=== PATIENT | male | born 1975 | race Caucasian/White ===

== ENCOUNTER 2016-04-11 09:25 | Outpatient (CLI) | payer MEDICAID | END 2016-04-11 09:26 | disposition home or self-care (01) | DX: G47.33 Obstructive sleep apnea (adult) (pediatric) (principal) ==

== ENCOUNTER 2016-04-11 11:03 | Outpatient (CLI) | END 2016-04-11 11:04 | disposition home or self-care (01) ==

== ENCOUNTER 2016-05-02 14:32 | Outpatient (CLI) | payer MEDICAID | END 2016-05-02 14:33 | disposition home or self-care (01) | DX: R74.8 Abnormal levels of other serum enzymes (principal) ==

== ENCOUNTER 2016-05-17 15:50 | Outpatient (CLI) | payer MEDICAID | END 2016-05-17 15:51 | disposition home or self-care (01) | DX: R74.8 Abnormal levels of other serum enzymes (principal) ==

== ENCOUNTER 2016-05-20 11:04 | Outpatient (CLI) | payer MEDICAID | END 2016-05-20 11:05 | disposition home or self-care (01) | DX: G47.33 Obstructive sleep apnea (adult) (pediatric) (principal) ==

== ENCOUNTER 2016-07-15 10:43 | Outpatient (CLI) | payer MEDICAID | END 2016-07-15 10:44 | disposition home or self-care (01) | DX: G47.33 Obstructive sleep apnea (adult) (pediatric) (principal) ==

== ENCOUNTER 2016-08-19 13:18 | Outpatient (CLI) | payer MEDICAID | END 2016-08-19 13:19 | disposition home or self-care (01) | DX: G47.33 Obstructive sleep apnea (adult) (pediatric) (principal) ==

== ENCOUNTER 2016-09-25 13:17 | Outpatient (CLI) | payer MEDICAID | END 2016-09-25 13:18 | disposition home or self-care (01) | LOC: SC 13:17 | PROVIDERS: ATTEND Nurse Practitioner Family | DX: G47.33 Obstructive sleep apnea (adult) (pediatric) (principal) | CPT/HCPCS: 99212; 99214 ==

== ENCOUNTER 2016-12-30 08:57 | Outpatient (CLI) | payer MEDICAID | END 2016-12-30 08:58 | disposition home or self-care (01) | LOC: SC 08:57 | PROVIDERS: ATTEND Nurse Practitioner Family | DX: G47.33 Obstructive sleep apnea (adult) (pediatric) (principal) | CPT/HCPCS: 99212; 99214 ==

== ENCOUNTER 2017-01-21 14:40 | Outpatient (CLI) | payer MEDICAID | END 2017-01-21 14:41 | disposition home or self-care (01) | LOC: LAB.WCP 14:40 | PROVIDERS: ATTEND Physician Assistant Medical | DX: Z11.3 Encounter for screening for infections with a predominantly sexual mode of transmission (principal) | CPT/HCPCS: 36415; 86803 ==

== ENCOUNTER 2017-06-03 08:00 | Outpatient (CLI) | payer MEDICAID ==
[2017-06-03 13:40] LABS: BASOPHILS % (AUTO) 0.4 %; EOSINOPHILS # (AUTO) 0.2 10^3/uL (0.0-0.7); EOSINOPHILS % (AUTO) 3.3 %; HGB - HEMOGLOBIN 14.5 g/dL (14.0-18.0); LYMPHOCYTES # (AUTO) 1.3 10^3/uL (1.5-3.5); LYMPHOCYTES % (AUTO) 18.2 %; MEAN CORPUSCULAR HGB CONC 35.1 g/dL (32.0-36.0); MEAN CORPUSCULAR VOLUME 85.5 fL (80.0-94.0); MEAN PLATELET VOLUME 9.5 fL (7.4-11.4); MONOCYTES # (AUTO) 0.5 10^3/uL (0.0-1.0); MONOCYTES % (AUTO) 6.4 %; NEUTROPHILS # (AUTO) 5.2 10^3/uL (1.5-6.6); NEUTROPHILS % (AUTO) 71.7 %; PLT - PLATELET COUNT 150 10^3/uL (130-450); RED BLOOD COUNT 4.82 10^6/uL (4.70-6.10); RED CELL DISTRIBUTION WIDTH 13.7 % (12.0-15.0); WHITE BLOOD COUNT 7.2 x10^3/uL (4.8-10.8)
[2017-06-03 13:58] LABS: ALBUMIN 4.4 g/dL (3.2-5.5); ALBUMIN/GLOBULIN RATIO 1.4 (1.0-2.2); ALKALINE PHOSPHATASE 72 IU/L (42-121); ALT ALANINE AMINOTRANSFERASE 32 IU/L (10-60); AST ASPARTATE AMINOTRANSFERASE 29 IU/L (10-42); BILIRUBIN,TOTAL 0.9 mg/dL (0.2-1.0); BUN - BLOOD UREA NITROGEN 14 mg/dL (6-20); CALCIUM 9.2 mg/dL (8.5-10.3); CARBON DIOXIDE - CO2 26 mmol/L (21-32); CHLORIDE 101 mmol/L (101-111); CHOL/HDL RATIO 3.7 (<5.0); CHOLESTEROL 161 mg/dL; CREATININE 0.8 mg/dL (0.6-1.2); GFR - MDRD 106 (>89); GLUCOSE 88 mg/dL (70-100); HDL CHOLESTEROL 43 mg/dL; LDL CHOLESTEROL,CALCULATED 97 mg/dL; LDL/HDL RATIO 2.3 (<3.6); SODIUM 136 mmol/L (135-145); TOTAL PROTEIN 7.6 g/dL (6.7-8.2); VLDL CHOLESTEROL 21 mg/dL
[2017-06-04 13:07] LABS: HEPATITIS C ANTIBODY NON-REACTIVE (NON-REACTIVE)
[2017-06-04 14:48] LABS: HIV AG/AB 4TH GEN NON-REACTIVE (NON-REACTIVE)
== END 2017-06-03 08:01 | disposition home or self-care (01) ==
LOC: LAB.WCP 08:00
PROVIDERS: ATTEND Physician Assistant Medical
DX: Z00.00 Encounter for general adult medical examination without abnormal findings (principal); Z11.4 Encounter for screening for human immunodeficiency virus [HIV]
CPT/HCPCS: 36415; 80053; 80061; 81599; 83721; 84443; 85025; 86592; 86803; 87389; 87491; 87591

== ENCOUNTER 2017-09-20 10:16 | Emergency (ER) | payer OTHER, MEDICAID ==
[2017-09-20 10:29] VITALS: BP 129/90
[2017-09-20] MEDS ORDERED: PROPARACAINE 0.5% OPHTH DROPS 15 ML LEFTEYE STA (11:18)
--- NOTE | 2017-09-20 11:25 | ED Physician Documentation ---
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 and one swung away and back and the poot peg hit him in the L eye he saw a flash of white and now his eye hurts and the vision if blurry and the light irritates the eye so he has to squint Review of Systems Eyes: reports: Decreased vision, Irritation PD PAST MEDICAL HISTORY - Present Medications Home Medications: Ambulatory Orders Medication Instructions Recorded Confirmed Erythromycin Base [Erythromycin] 1 applic OP Q4H #1 tub 09/20/17 - Allergies Allergies/Adverse Reactions: Allergies Allergy/AdvReac Type Severity Reaction Status Date / Time Sulfa (Sulfonamide Allergy Unknown Verified 09/20/17 10:26 Antibiotics) PD ED PE NORMAL - Vitals Vital signs reviewed: Yes - HEENT HEENT: PERRL, EOMI, Other (photophobia. improved with proparacaine, no retinal tear vis, no retinal hemorrhage vis, mobile linear abrasion L of iris c/w sup scleral tear, no leaking) - Neck Neck: Supple, no meningeal sign - Respiratory Respiratory: No respiratory distress Results - Vitals Vitals: Vital Signs - 24 hr 09/20/17 10:26 Temperature 37.3 C Heart Rate 72 Respiratory 18 Rate Blood Pressure 129/90 H O2 Saturation 97 Oxygen O2 Source Room air PD MEDICAL DECISION MAKING - Sepsis Event Vital Signs: Vital Signs - 24 hr 09/20/17 10:26 Temperature 37.3 C Heart Rate 72 Respiratory 18 Rate Blood Pressure 129/90 H O2 Saturation 97 Oxygen O2 Source Room air Departure - Departure Disposition: 01 Home, Self Care Clinical Impression: Eye injury, superficial Qualifiers: Encounter type: initial encounter Laterality: left Qualified Code(s): S05.8X2A - Other injuries of left eye and orbit, initial encounter Condition: Good Instructions: ED Eye Injury Corneal Abrasion Follow-Up: Christopher Blanco MD [Provider Admit Priv/Credential] - (call Friday morning for an ER follow up appointment) Prescriptions: Erythromycin Base [Erythromycin] 1 applic OP Q4H #1 tub Comments: The dilating drops will last about 24 hours and provide relief from the squinting and pain with light. You should wear sunglasses and not drive for at least 24 hr You can also take motrin for the pain Cool compresses will help too Use the eye ointment every 4 hr while awake Follow up with the eye doctor for a recheck Friday or Friday - including a more thorough evaluation of your retina Forms: Activity restrictions
[2017-09-20] MEDS ORDERED: CYCLOPENTOLATE 1% OPHTH DROPS 2 ML LEFTEYE ONE (11:59)
== END 2017-09-20 12:16 | disposition home or self-care (01) ==
LOC: ED 10:16
DX: S05.92XA Unspecified injury of left eye and orbit, initial encounter (principal); W22.8XXA Striking against or struck by other objects, initial encounter; Y92.89 Other specified places as the place of occurrence of the external cause; Y99.0 Civilian activity done for income or pay
CPT/HCPCS: 99283; A9270; J3490

== ENCOUNTER 2017-10-20 10:46 | Emergency (ER) | payer MEDICAID ==
--- NOTE | 2017-10-20 12:29 | ED Physician Documentation ---
PD HPI OPHTHO - Stated complaint Stated Complaint: LT EYE PX - Chief complaint Chief Complaint: Heent - History obtained from History obtained from: Patient - History of Present Illness Timing - onset: How many weeks ago (1) Timing - duration: Weeks (1) Timing - details: Gradual onset, Still present Location: Left Quality / character: Aching, Other (feeling of pressure behind left eye and some pain with eye movement.) Associated symptoms: No: Redness, Swelling, Discharge, Photophobia, Double vision Contributing factors: No: Exposed to conjunctivitis, Recent URI, Blunt trauma, Wears contacts Similar symptoms before: Has not had sx before Recently seen: Not recently seen Review of Systems Constitutional: denies: Fever, Chills Eyes: denies: Loss of vision, Decreased vision, Photophobia, Discharge Ears: denies: Ear pain Nose: reports: Sinus pressure / pain (some congestion). 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 ) - Present Medications Home Medications: Ambulatory Orders Medication Instructions Recorded Confirmed Erythromycin Base [Erythromycin] 1 applic OP Q4H #1 tub 09/20/17 Cephalexin [Keflex] 500 mg PO TID #21 capsule 10/20/17 Cetirizine [ZyrTEC] 10 mg PO DAILY #20 tablet 10/20/17 Dexamethasone [Decadron] 4 mg PO DAILY #5 tablet 10/20/17 HYDROcod/ACETAM 5/325 [[place] 5/325] 1 tab PO Q6H PRN #15 tablet 10/20/17 - Allergies Allergies/Adverse Reactions: Allergies Allergy/AdvReac Type Severity Reaction Status Date / Time Sulfa (Sulfonamide Allergy Unknown Verified 09/20/17 10:26 Antibiotics) - Social History Does the pt smoke?: No Smoking Status: Never smoker Does the pt drink ETOH?: No Does the pt have substance abuse?: No - Immunizations Immunizations are current?: Yes - POLST Patient has POLST: No PD ED PE NORMAL - Vitals Vital signs reviewed: Yes - General General: Alert and oriented X 3, No acute distress, Well developed/nourished - HEENT HEENT: PERRL, EOMI, Moist mucous membranes, Pharynx benign, Dentition benign, Other (some injection/ hyperemia of left eye. No proptosis. Eye ballottement feels normal. Fundal exam is normal. IOP by [facility] is 15. No photophobia. ) - Neck Neck: Supple, no meningeal sign, No adenopathy Results - Vitals Vitals: Vital Signs - 24 hr 10/20/17 10/20/17 11:09 14:58 Temperature 36.8 C Heart Rate 78 86 Respiratory 17 18 Rate Blood Pressure 126/86 H 140/89 H O2 Saturation 95 98 Oxygen O2 Source Room air - Labs Labs: Laboratory Tests 10/20/17 10/20/17 13:08 13:08 WBC 7.3 RBC 5.05 Hgb 15.1 Hct 43.9 MCV 86.9 MCH 30.0 MCHC 34.5 RDW 13.8 Plt Count 163 MPV 8.8 Neut # (Auto) 4.7 Lymph # (Auto) 1.6 [place] # (Auto) 0.6 Eos # (Auto) 0.4 Baso # (Auto) 0.0 Absolute Nucleated RBC 0.00 Nucleated RBC % 0.0 ESR 4 - Rads (name of study) orbital CT Radiology: Prelim report reviewed (orbit normal. left maxillary inflammation.) PD MEDICAL DECISION MAKING - ED course Complexity details: considered differential (IOP is good. has feeling of pressure behind left eye. Got CT to evaluate for process such as tumor, hematoma , infection, etc. The orbit appears okay. There is some sinusitis left maxillary. ), d/w patient - Sepsis Event Vital Signs: Vital Signs - 24 hr 10/20/17 10/20/17 11:09 14:58 Temperature 36.8 C Heart Rate 78 86 Respiratory 17 18 Rate Blood Pressure 126/86 H 140/89 H O2 Saturation 95 98 Oxygen O2 Source Room air Departure - Departure Disposition: 01 Home, Self Care Clinical Impression: Retro-orbital pain of left eye Sinusitis Qualifiers: Sinusitis location: maxillary Chronicity: acute Recurrence: non-recurrent Qualified Code(s): J01.00 - Acute maxillary sinusitis, unspecified Condition: Stable Record reviewed to determine appropriate education?: Yes Instructions: ED Sinusitis Abx Tx Follow-Up: Karissa Calderón DO [Primary Care Provider] - Prescriptions: Cephalexin [Keflex] 500 mg PO TID #21 capsule Cetirizine [ZyrTEC] 10 mg PO DAILY #20 tablet Dexamethasone [Decadron] 4 mg PO DAILY #5 tablet HYDROcod/ACETAM 5/325 [[place] 5/325] 1 tab PO Q6H PRN #15 tablet PRN Reason: Pain Comments: The orbits area and the tissue around it appear normal to me. The radiology report is still pending. There is some inflammation and fluid in the left maxillary sinus so this may be putting enough pressure to feel that it is irritating the orbits. Will treat with anti-inflammatories Decadron daily for 5 days. He can use naproxen or ibuprofen as well. Use antibiotic cephalexin 3 times a day for a week. Also use cetirizine antihistamine to decrease some of the pressure and congestion. Add hydrocodone if needed for pain in the short- term. Follow-up with your primary care if not improved over the next several days. Discharge Date/Time: 10/20/17 15:00
[2017-10-20 13:14] LABS: BASOPHILS % (AUTO) 0.4 %; EOSINOPHILS # (AUTO) 0.4 10^3/uL (0.0-0.7); HGB - HEMOGLOBIN 15.1 g/dL (14.0-18.0); LYMPHOCYTES # (AUTO) 1.6 10^3/uL (1.5-3.5); LYMPHOCYTES % (AUTO) 22.2 %; MEAN CORPUSCULAR HGB CONC 34.5 g/dL (32.0-36.0); MEAN CORPUSCULAR VOLUME 86.9 fL (80.0-94.0); MEAN PLATELET VOLUME 8.8 fL (7.4-11.4); MONOCYTES # (AUTO) 0.6 10^3/uL (0.0-1.0); MONOCYTES % (AUTO) 7.9 %; NEUTROPHILS # (AUTO) 4.7 10^3/uL (1.5-6.6); NEUTROPHILS % (AUTO) 64.5 %; PLT - PLATELET COUNT 163 10^3/uL (130-450); RED BLOOD COUNT 5.05 10^6/uL (4.70-6.10); RED CELL DISTRIBUTION WIDTH 13.8 % (12.0-15.0); WHITE BLOOD COUNT 7.3 x10^3/uL (4.8-10.8)
--- NOTE | 2017-10-20 14:37 | CT Report ---
Procedure Date: 10/20/2017 Accession Number: [id number] / [id number] Procedure: CT - Orbits W/O CPT Code: FULL RESULT: EXAM: CT MAXILLOFACIAL WITHOUT CONTRAST EXAM DATE: 10/20/2017 02:05 PM. CLINICAL HISTORY: Left retro-bulbar pressure feeling for 1-2 weeks. COMPARISONS: None. TECHNIQUE: Thin-section axial images were acquired of the face without contrast. Post-processing: Coronal and sagittal reformats. Other: None. In accordance with CT protocol optimization, one or more of the following dose reduction techniques were utilized for this exam: automated exposure control, adjustment of mA and/or KV based on patient size, or use of iterative reconstructive technique. FINDINGS: Soft Tissue: The infratemporal fossa and parapharyngeal spaces are unremarkable. Orbits: Symmetric and unremarkable. Bones: No fracture or bone lesion. Temporomandibular Joints: The temporomandibular joints are symmetric and normally located. Sinuses: There is mild mucosal thickening within the inferior aspect of the maxillary sinuses bilaterally. The infundibulum and ostiomeatal complex appears patent. The other paranasal sinuses are clear. Other: None. IMPRESSION: Negative orbital CT. RADIA
[2017-10-20] MEDS ORDERED: KETOROLAC 30 MG/ML VIAL IM STA (14:38)
[2017-10-20] MEDS ORDERED: cephALEXin 250 MG CAPSULE PO STA (14:38)
[2017-10-20 14:59] VITALS: BP 140/89
== END 2017-10-20 15:00 | disposition home or self-care (01) ==
LOC: ED 10:46
DX: H57.12 Ocular pain, left eye (principal); J01.00 Acute maxillary sinusitis, unspecified
CPT/HCPCS: 36415; 70480; 85025; 85651; 96372; 99283; A9270

== ENCOUNTER 2018-03-09 11:56 | Outpatient (CLI) | payer MEDICAID | END 2018-03-09 23:59 | disposition home or self-care (01) | LOC: LAB.WCP 11:56 | PROVIDERS: ATTEND Nurse Practitioner | DX: K29.70 Gastritis, unspecified, without bleeding (principal) | CPT/HCPCS: 87493 ==

== ENCOUNTER 2018-06-11 14:25 | Outpatient (CLI) | payer MEDICAID ==
[2018-06-11 19:06] LABS: BASOPHILS % (AUTO) 0.4 %; EOSINOPHILS # (AUTO) 0.3 10^3/uL (0.0-0.7); EOSINOPHILS % (AUTO) 3.9 %; HGB - HEMOGLOBIN 14.1 g/dL (14.0-18.0); LYMPHOCYTES # (AUTO) 2.5 10^3/uL (1.5-3.5); LYMPHOCYTES % (AUTO) 30.1 %; MEAN CORPUSCULAR HEMOGLOBIN 28.5 pg (27.0-31.0); MEAN CORPUSCULAR HGB CONC 33.2 g/dL (32.0-36.0); MEAN CORPUSCULAR VOLUME 85.8 fL (80.0-94.0); MEAN PLATELET VOLUME 9.9 fL (7.4-11.4); MONOCYTES # (AUTO) 0.6 10^3/uL (0.0-1.0); MONOCYTES % (AUTO) 6.9 %; NEUTROPHILS # (AUTO) 4.9 10^3/uL (1.5-6.6); NEUTROPHILS % (AUTO) 58.7 %; PLT - PLATELET COUNT 171 10^3/uL (130-450); RED BLOOD COUNT 4.94 10^6/uL (4.70-6.10); RED CELL DISTRIBUTION WIDTH 13.9 % (12.0-15.0); WHITE BLOOD COUNT 8.3 x10^3/uL (4.8-10.8)
[2018-06-11 19:09] LABS: ALBUMIN 4.3 g/dL (3.2-5.5); ALBUMIN/GLOBULIN RATIO 1.4 (1.0-2.2); BILIRUBIN,TOTAL 1.2 mg/dL (0.2-1.0); CALCIUM 9.1 mg/dL (8.5-10.3); CREATININE 0.8 mg/dL (0.6-1.2); TOTAL PROTEIN 7.4 g/dL (6.7-8.2)
== END 2018-06-11 23:59 | disposition home or self-care (01) ==
LOC: LAB.WCP 14:25
PROVIDERS: ATTEND Nurse Practitioner
DX: R31.9 Hematuria, unspecified (principal); C67.9 Malignant neoplasm of bladder, unspecified
CPT/HCPCS: 36415; 80053; 85025

== ENCOUNTER 2019-02-05 16:27 | Outpatient (CLI) | payer MEDICAID ==
[2019-02-05 16:44] LABS: BASOPHILS % (AUTO) 0.5 %; EOSINOPHILS # (AUTO) 0.3 10^3/uL (0.0-0.7); EOSINOPHILS % (AUTO) 5.2 %; HGB - HEMOGLOBIN 13.4 g/dL (14.0-18.0); LYMPHOCYTES # (AUTO) 1.4 10^3/uL (1.5-3.5); LYMPHOCYTES % (AUTO) 22.8 %; MEAN CORPUSCULAR HEMOGLOBIN 29.1 pg (27.0-31.0); MEAN CORPUSCULAR HGB CONC 33.7 g/dL (32.0-36.0); MEAN CORPUSCULAR VOLUME 86.5 fL (80.0-94.0); MEAN PLATELET VOLUME 10.7 fL (7.4-11.4); MONOCYTES # (AUTO) 0.6 10^3/uL (0.0-1.0); MONOCYTES % (AUTO) 9.6 %; NEUTROPHILS # (AUTO) 3.6 10^3/uL (1.5-6.6); NEUTROPHILS % (AUTO) 61.2 %; PLT - PLATELET COUNT 150 10^3/uL (130-450); RED CELL DISTRIBUTION WIDTH 13.2 % (12.0-15.0); WHITE BLOOD COUNT 5.9 x10^3/uL (4.8-10.8)
[2019-02-05 16:54] LABS: ALBUMIN/GLOBULIN RATIO 1.2 (1.0-2.2); BILIRUBIN,TOTAL 0.7 mg/dL (0.2-1.0); CALCIUM 9.4 mg/dL (8.5-10.3); TOTAL PROTEIN 7.3 g/dL (6.7-8.2)
== END 2019-02-05 16:28 | disposition home or self-care (01) ==
LOC: LAB 16:27
PROVIDERS: ATTEND Nurse Practitioner
DX: K76.0 Fatty (change of) liver, not elsewhere classified (principal); R68.84 Jaw pain; C67.9 Malignant neoplasm of bladder, unspecified
CPT/HCPCS: 36415; 80053; 85025

== ENCOUNTER 2019-02-18 15:31 | Outpatient (CLI) | payer MEDICAID ==
[2019-02-18] MEDS ORDERED: IOVERSOL 320 100 ML VIAL IVP ONE ×2 (15:36→16:06)
--- NOTE | 2019-02-19 08:50 | CT Report ---
Reason: HEMATURIA, OVERACTIVE BLADDER Procedure Date: 02/18/2019 Accession Number: [id number] / [id number] Procedure: CT - ABDOMEN/PELVIS W/WO CPT Code: Final Report FULL RESULT: EXAM: CT ABDOMEN AND PELVIS WITHOUT AND WITH CONTRAST (CT IVP) EXAM DATE: 02/18/2019 04:07 PM. CLINICAL HISTORY: HEMATURIA, OVERACTIVE BLADDER. COMPARISONS: None. TECHNIQUE: Routine helical imaging was performed through the kidneys, ureters and bladder in the precontrast and postcontrast phases. IV Contrast: 100 mL Optiray 320. Reconstructions: Coronal and sagittal. In accordance with CT protocol optimization, one or more of the following dose reduction techniques were utilized for this exam: automated exposure control, adjustment of mA and/or KV based on patient size, or use of iterative reconstructive technique. FINDINGS: Lung Bases: Clear. The visible heart is normal in size. There is no pericardial effusion. Liver: The liver parenchyma is hypoattenuating consistent with hepatic steatosis. No focal intrahepatic mass is seen. Gallbladder/Bile Ducts: Normal. No biliary dilatation. Spleen: Normal. Pancreas: Normal. Adrenal Glands: Normal. Kidneys/Bladder: Right Kidney/Ureter: No renal or ureteral stones. No hydronephrosis or hydroureter. A 1 cm hypoattenuating lesion is seen in the lower pole of the right kidney (series 9, image 46). This is too small to characterize, but statistically likely to represent a small cyst. No masses. Left Kidney/Ureter: No renal or ureteral stones. No hydronephrosis or hydroureter. No masses. Bladder: No stones. No wall thickening or mass. Peritoneal Cavity/Bowel: The intestines are normal in caliber and position. The appendix is normal. There is no evidence of bowel obstruction. No free fluid, free air or adenopathy. No masses or acute inflammatory process. Pelvic Organs: Within normal limits. Vasculature: No aneurysms or other significant abnormality. Bones: Mild degenerative changes in the thoracic spine. Bone islands are seen at L4 and in the proximal left femur. No acute fracture or dislocation. Other: None. IMPRESSION: 1. No urinary tract masses, stones or obstruction. 2. Hepatic steatosis. RADIA
== END 2019-02-18 15:32 | disposition home or self-care (01) ==
LOC: DI 15:31
PROVIDERS: ATTEND Nurse Practitioner
DX: R31.9 Hematuria, unspecified (principal); N32.81 Overactive bladder; K76.0 Fatty (change of) liver, not elsewhere classified
CPT/HCPCS: 74178; Q9967

== ENCOUNTER 2019-03-19 12:11 | Outpatient (CLI) | payer MEDICAID ==
[2019-03-19 12:58] LABS: ALBUMIN 4.2 g/dL (3.2-5.5); ALBUMIN/GLOBULIN RATIO 1.3 (1.0-2.2); BILIRUBIN,TOTAL 0.7 mg/dL (0.2-1.0); CALCIUM 9.1 mg/dL (8.5-10.3); CREATININE 0.7 mg/dL (0.6-1.2); TOTAL PROTEIN 7.5 g/dL (6.7-8.2)
[2019-03-19 13:06] LABS: HB2 TOTAL 14.5 g/dL; HEMOGLOBIN A1C 0.84 g/dL; HEMOGLOBIN A1C % 7.5 % (4.6-6.2)
== END 2019-03-19 12:12 | disposition home or self-care (01) ==
LOC: LAB 12:11
PROVIDERS: ATTEND Nurse Practitioner
DX: K76.0 Fatty (change of) liver, not elsewhere classified (principal); R73.9 Hyperglycemia, unspecified
CPT/HCPCS: 36415; 80053; 83036

== ENCOUNTER 2019-05-14 13:12 | Outpatient (CLI) | payer MEDICAID ==
[2019-05-14 13:35] LABS: ALBUMIN 4.3 g/dL (3.2-5.5); ALBUMIN/GLOBULIN RATIO 1.4 (1.0-2.2); CALCIUM 9.1 mg/dL (8.5-10.3); CREATININE 0.9 mg/dL (0.6-1.2); TOTAL PROTEIN 7.4 g/dL (6.7-8.2)
[2019-05-14 14:11] LABS: HB2 TOTAL 14.4 g/dL; HEMOGLOBIN A1C 0.67 g/dL; HEMOGLOBIN A1C % 6.4 % (4.6-6.2)
== END 2019-05-14 13:13 | disposition home or self-care (01) ==
LOC: LAB 13:12
PROVIDERS: ATTEND Nurse Practitioner
DX: K76.0 Fatty (change of) liver, not elsewhere classified (principal); R73.9 Hyperglycemia, unspecified
CPT/HCPCS: 36415; 80053; 83036

== ENCOUNTER 2019-09-28 14:25 | Outpatient (CLI) | payer MEDICAID ==
[2019-09-28 18:32] LABS: BASOPHILS % (AUTO) 0.5 %; EOSINOPHILS # (AUTO) 0.2 10^3/uL (0.0-0.7); EOSINOPHILS % (AUTO) 2.3 %; HGB - HEMOGLOBIN 14.7 g/dL (14.0-18.0); LYMPHOCYTES # (AUTO) 1.4 10^3/uL (1.5-3.5); LYMPHOCYTES % (AUTO) 15.9 %; MEAN CORPUSCULAR HEMOGLOBIN 28.5 pg (27.0-31.0); MEAN CORPUSCULAR HGB CONC 32.6 g/dL (32.0-36.0); MEAN CORPUSCULAR VOLUME 87.4 fL (80.0-94.0); MEAN PLATELET VOLUME 12.3 fL (7.4-11.4); MONOCYTES # (AUTO) 0.4 10^3/uL (0.0-1.0); MONOCYTES % (AUTO) 4.7 %; NEUTROPHILS # (AUTO) 6.6 10^3/uL (1.5-6.6); NEUTROPHILS % (AUTO) 76.3 %; PLT - PLATELET COUNT 171 10^3/uL (130-450); RED BLOOD COUNT 5.16 10^6/uL (4.70-6.10); RED CELL DISTRIBUTION WIDTH 13.8 % (12.0-15.0); WHITE BLOOD COUNT 8.7 x10^3/uL (4.8-10.8)
[2019-09-28 18:54] LABS: ALBUMIN 4.1 g/dL (3.2-5.5); ALBUMIN/GLOBULIN RATIO 1.4 (1.0-2.2); BILIRUBIN,TOTAL 0.7 mg/dL (0.2-1.0); CALCIUM 9.4 mg/dL (8.5-10.3); CREATININE 0.8 mg/dL (0.6-1.2); HB2 TOTAL 15.4 g/dL; HEMOGLOBIN A1C 0.54 g/dL; HEMOGLOBIN A1C % 5.4 % (4.6-6.2); TOTAL PROTEIN 7.1 g/dL (6.7-8.2)
== END 2019-09-28 23:59 | disposition home or self-care (01) ==
LOC: LAB.WCP 14:25
PROVIDERS: ATTEND Nurse Practitioner
DX: R63.4 Abnormal weight loss (principal); E11.9 Type 2 diabetes mellitus without complications; R68.84 Jaw pain; K76.0 Fatty (change of) liver, not elsewhere classified; C67.9 Malignant neoplasm of bladder, unspecified
CPT/HCPCS: 36415; 80053; 82043; 83036; 84443; 85025

== ENCOUNTER 2019-10-26 14:11 | Outpatient (CLI) | payer MEDICAID ==
--- NOTE | 2019-10-26 14:57 | XRAY Report ---
PROCEDURE: Chest 2 View X-Ray INDICATIONS: SCREENING FOR INFECTIOUS DISEASE, MEDICATION USE TECHNIQUE: 2 view(s) of the chest. COMPARISON: None. FINDINGS: Surgical changes and devices: None. Lungs and pleura: No pleural effusions or pneumothorax. Lungs are clear. Mediastinum: Mediastinal contours are normal. Heart size is normal. Bones and chest wall: No suspicious bony abnormalities. Soft tissues appear unremarkable. IMPRESSION: No acute cardiopulmonary process demonstrated radiographically. Reviewed by: Anrdés Jacobs MD on 10/26/2019 2:56 PM PDT Approved by: Andrés Jacobs MD on 10/26/2019 2:56 PM PDT Station ID: [id number]
== END 2019-10-26 14:12 | disposition home or self-care (01) ==
LOC: DI 14:11
PROVIDERS: ATTEND Nurse Practitioner
DX: Z11.9 Encounter for screening for infectious and parasitic diseases, unspecified (principal); Z79.899 Other long term (current) drug therapy; R63.4 Abnormal weight loss
CPT/HCPCS: 71046

== ENCOUNTER 2019-12-23 14:52 | Outpatient (CLI) | payer MEDICAID ==
[2019-12-23 15:05] LABS: BASOPHILS % (AUTO) 0.5 %; BILIRUBIN,URINE NEGATIVE (NEGATIVE); EOSINOPHILS # (AUTO) 0.3 10^3/uL (0.0-0.7); EOSINOPHILS % (AUTO) 4.2 %; GLUCOSE, URINE (UA) NEGATIVE (NEGATIVE); HGB - HEMOGLOBIN 15.4 g/dL (14.0-18.0); KETONES,URINE (UA) NEGATIVE (NEGATIVE); LEUKOCYTE ESTERASE, URINE NEGATIVE (NEGATIVE); LYMPHOCYTES # (AUTO) 1.6 10^3/uL (1.5-3.5); LYMPHOCYTES % (AUTO) 20.3 %; MEAN CORPUSCULAR HEMOGLOBIN 30.1 pg (27.0-31.0); MEAN CORPUSCULAR HGB CONC 34.3 g/dL (32.0-36.0); MEAN CORPUSCULAR VOLUME 87.7 fL (80.0-94.0); MEAN PLATELET VOLUME 11.2 fL (7.4-11.4); MONOCYTES # (AUTO) 0.6 10^3/uL (0.0-1.0); MONOCYTES % (AUTO) 7.2 %; NEUTROPHILS # (AUTO) 5.4 10^3/uL (1.5-6.6); NEUTROPHILS % (AUTO) 67.4 %; NITRITE,URINE NEGATIVE (NEGATIVE); OCCULT BLOOD,URINE NEGATIVE (NEGATIVE); PH,URINE 5.5 PH (5.0-7.5); PLT - PLATELET COUNT 169 10^3/uL (130-450); PROTEIN,URINE NEGATIVE (NEGATIVE); RED BLOOD COUNT 5.12 10^6/uL (4.70-6.10); RED CELL DISTRIBUTION WIDTH 13.2 % (12.0-15.0); UROBILINOGEN,URINE 0.2 (NORMAL) E.U./dL (NORMAL)
[2019-12-23] MEDS ORDERED: IOVERSOL 320 50 ML VIAL ONE (15:13)
[2019-12-23] MEDS ORDERED: IOVERSOL 320 100 ML VIAL IVP ONE (15:13)
[2019-12-23 15:17] LABS: ALBUMIN 4.4 g/dL (3.2-5.5); ALBUMIN/GLOBULIN RATIO 1.4 (1.0-2.2); BILIRUBIN,TOTAL 1.1 mg/dL (0.2-1.0); CALCIUM 9.5 mg/dL (8.5-10.3); CREATININE 0.7 mg/dL (0.6-1.2); TOTAL PROTEIN 7.6 g/dL (6.7-8.2)
[2019-12-23 15:30] LABS: BACTERIA,URINE None Seen /HPF (None Seen); CLARITY,URINE CLEAR (CLEAR); RBC,URINE None Seen /HPF (0-5); SQUAMOUS EPITHELIAL CELL,UR FEW Squamous (<= Few)
--- NOTE | 2019-12-23 19:59 | CT Report ---
PROCEDURE: Abdomen/Pelvis W INDICATIONS: ABD PAIN CONTRAST: IV CONTRAST: Optiray 320 ml: 100 PO CONTRAST: Optiray 320 ml50 TECHNIQUE: After the administration of nonionic contrast, 5 mm thick sections acquired from the diaphragms to th e symphysis. 5 mm thick coronal and sagittal reformats were acquired. For radiation dose reduction, the following was used: automated exposure control, adjustment of mA and/or kV according to patient size. COMPARISON: 02/18/2019 abdomen/pelvis CT. FINDINGS: Image quality: Excellent. ABDOMEN: Lung bases: Lung bases are clear. Heart size is normal. Solid organs: Liver and spleen are normal in size and enhancement. Gallbladder appears normal Bili nelly system is non dilated. Pancreas enhances normally. No adrenal nodules. Kidneys demonstrate nor mal size and enhancement, without hydronephrosis. Peritoneum and bowel: Bowel loops demonstrate normal wall thickness and caliber. No free fluid or a ir. Nodes and vessels: No retroperitoneal or mesenteric adenopathy by size criteria. Aorta and inferior vena cava are normal in size. Miscellaneous: No ventral hernias. PELVIS: Genitourinary: Bladder wall thickness is normal. Miscellaneous: No inguinal hernias or adenopathy. A normal appendix is found right lower quadrant. Bones: No suspicious bony lesions. No vertebral body compression fractures. IMPRESSION: Source of abdominal pain is not identified. Normal appendix found right lower quadrant. No sign of peritoneal inflammation, or diverticulitis. Mild to moderate diverticulosis is identified along the sigmoid colon. Reviewed by: Vince Washington MD on 12/23/2019 7:57 PM PDT Approved by: Vince Washington MD on 12/23/2019 7:57 PM PDT Station ID: [id number]
== END 2019-12-23 14:53 | disposition home or self-care (01) ==
LOC: DI 14:52
PROVIDERS: ATTEND Family Medicine
DX: R10.9 Unspecified abdominal pain (principal); K57.30 Diverticulosis of large intestine without perforation or abscess without bleeding
CPT/HCPCS: 36415; 74177; 80053; 81001; 82150; 83690; 85025; Q9967; 87086

== ENCOUNTER 2019-12-29 08:00 | Outpatient (CLI) | payer MEDICAID | END 2019-12-29 23:59 | disposition home or self-care (01) | LOC: LAB.R 08:00 | PROVIDERS: ATTEND Nurse Practitioner | DX: R10.9 Unspecified abdominal pain (principal) | CPT/HCPCS: 87491; 87591; 87661 ==

== ENCOUNTER 2019-12-29 08:00 | Outpatient (CLI) | payer MEDICAID ==
[2019-12-29 18:37] LABS: BASOPHILS % (AUTO) 0.3 %; EOSINOPHILS # (AUTO) 0.4 10^3/uL (0.0-0.7); EOSINOPHILS % (AUTO) 4.4 %; HGB - HEMOGLOBIN 15.4 g/dL (14.0-18.0); LYMPHOCYTES # (AUTO) 1.9 10^3/uL (1.5-3.5); LYMPHOCYTES % (AUTO) 21.8 %; MEAN CORPUSCULAR HEMOGLOBIN 29.5 pg (27.0-31.0); MEAN CORPUSCULAR HGB CONC 33.6 g/dL (32.0-36.0); MEAN CORPUSCULAR VOLUME 87.9 fL (80.0-94.0); MEAN PLATELET VOLUME 11.6 fL (7.4-11.4); MONOCYTES # (AUTO) 0.6 10^3/uL (0.0-1.0); MONOCYTES % (AUTO) 7.2 %; NEUTROPHILS # (AUTO) 5.9 10^3/uL (1.5-6.6); NEUTROPHILS % (AUTO) 65.9 %; PLT - PLATELET COUNT 188 10^3/uL (130-450); RED BLOOD COUNT 5.22 10^6/uL (4.70-6.10); RED CELL DISTRIBUTION WIDTH 13.4 % (12.0-15.0); WHITE BLOOD COUNT 8.9 x10^3/uL (4.8-10.8)
[2019-12-29 18:38] LABS: ALBUMIN 4.4 g/dL (3.2-5.5); ALBUMIN/GLOBULIN RATIO 1.4 (1.0-2.2); BILIRUBIN,TOTAL 0.8 mg/dL (0.2-1.0); CALCIUM 9.7 mg/dL (8.5-10.3); CREATININE 0.8 mg/dL (0.6-1.2); TOTAL PROTEIN 7.5 g/dL (6.7-8.2)
[2019-12-31 13:36] LABS: HSV 1 IGG TYPE SPECIFIC AB 8.08 index; HSV 2 IGG TYPE SPECIFIC AB <0.90 index
== END 2019-12-29 23:59 | disposition home or self-care (01) ==
LOC: LAB.WCP 08:00
PROVIDERS: ATTEND Nurse Practitioner
DX: R10.9 Unspecified abdominal pain (principal); E11.9 Type 2 diabetes mellitus without complications; Z11.9 Encounter for screening for infectious and parasitic diseases, unspecified
CPT/HCPCS: 36415; 80053; 85025; 86695; 86696

== ENCOUNTER 2020-01-27 20:25 | Outpatient (CLI) | payer MEDICAID | END 2020-01-27 20:26 | disposition home or self-care (01) | LOC: COV 20:25 | PROVIDERS: ATTEND Family Medicine | DX: R50.9 Fever, unspecified (principal); Z20.828 Contact with and (suspected) exposure to other viral communicable diseases ==

== ENCOUNTER 2020-04-10 14:46 | Outpatient (CLI) | payer MEDICAID ==
[2020-04-10 18:51] LABS: BASOPHILS % (AUTO) 0.4 %; EOSINOPHILS # (AUTO) 0.4 10^3/uL (0.0-0.7); EOSINOPHILS % (AUTO) 5.2 %; HGB - HEMOGLOBIN 15.9 g/dL (14.0-18.0); LYMPHOCYTES # (AUTO) 2.2 10^3/uL (1.5-3.5); LYMPHOCYTES % (AUTO) 25.7 %; MEAN CORPUSCULAR HEMOGLOBIN 29.8 pg (27.0-31.0); MEAN CORPUSCULAR HGB CONC 33.8 g/dL (32.0-36.0); MEAN PLATELET VOLUME 11.5 fL (7.4-11.4); MONOCYTES # (AUTO) 0.6 10^3/uL (0.0-1.0); MONOCYTES % (AUTO) 7.5 %; NEUTROPHILS # (AUTO) 5.1 10^3/uL (1.5-6.6); NEUTROPHILS % (AUTO) 60.8 %; PLT - PLATELET COUNT 176 10^3/uL (130-450); RED BLOOD COUNT 5.34 10^6/uL (4.70-6.10); RED CELL DISTRIBUTION WIDTH 12.8 % (12.0-15.0); WHITE BLOOD COUNT 8.4 x10^3/uL (4.8-10.8)
[2020-04-10 18:56] LABS: ALBUMIN 4.6 g/dL (3.2-5.5); ALBUMIN/GLOBULIN RATIO 1.4 (1.0-2.2); CALCIUM 9.6 mg/dL (8.5-10.3); CREATININE 0.8 mg/dL (0.6-1.2); TOTAL PROTEIN 7.8 g/dL (6.7-8.2)
== END 2020-04-10 23:59 | disposition home or self-care (01) ==
LOC: LAB.WCP 14:46
PROVIDERS: ATTEND Nurse Practitioner
DX: R53.83 Other fatigue (principal); K92.1 Melena; R10.9 Unspecified abdominal pain; Z79.899 Other long term (current) drug therapy
CPT/HCPCS: 36415; 80053; 85025

== ENCOUNTER 2020-04-27 19:52 | Outpatient (CLI) | payer MEDICAID | END 2020-04-27 19:53 | disposition home or self-care (01) | LOC: COV 19:52 | PROVIDERS: ATTEND Surgery | DX: Z01.812 Encounter for preprocedural laboratory examination (principal); K92.1 Melena; E11.9 Type 2 diabetes mellitus without complications; Z20.822 Contact with and (suspected) exposure to COVID-19 ==

== ENCOUNTER 2020-05-11 20:05 | Outpatient (CLI) | payer MEDICAID | END 2020-05-11 20:06 | disposition home or self-care (01) | LOC: COV 20:05 | PROVIDERS: ATTEND Surgery | DX: Z01.812 Encounter for preprocedural laboratory examination (principal); K92.1 Melena; J44.9 Chronic obstructive pulmonary disease, unspecified; F17.200 Nicotine dependence, unspecified, uncomplicated; I25.10 Atherosclerotic heart disease of native coronary artery without angina pectoris; E11.9 Type 2 diabetes mellitus without complications; Z20.822 Contact with and (suspected) exposure to COVID-19 ==

== ENCOUNTER 2020-06-10 15:33 | Outpatient (CLI) | payer MEDICAID | END 2020-06-10 15:34 | disposition left against medical advice (07) | LOC: EMS 15:33 | DX: R07.89 Other chest pain (principal); R55 Syncope and collapse; R61 Generalized hyperhidrosis ==

== ENCOUNTER 2020-06-12 08:00 | Outpatient (CLI) | payer MEDICAID ==
[2020-06-12 18:56] LABS: ALBUMIN 4.3 g/dL (3.2-5.5); ALBUMIN/GLOBULIN RATIO 1.3 (1.0-2.2); ALKALINE PHOSPHATASE 63 IU/L (42-121); ALT ALANINE AMINOTRANSFERASE 25 IU/L (10-60); AST ASPARTATE AMINOTRANSFERASE 21 IU/L (10-42); BILIRUBIN,TOTAL 0.9 mg/dL (0.2-1.0); BUN - BLOOD UREA NITROGEN 15 mg/dL (6-20); CALCIUM 9.3 mg/dL (8.5-10.3); CARBON DIOXIDE - CO2 26 mmol/L (21-32); CHLORIDE 105 mmol/L (101-111); CREATININE 0.9 mg/dL (0.6-1.2); GFR - MDRD 91 (>89); GLUCOSE 82 mg/dL (70-100); SODIUM 139 mmol/L (135-145); TOTAL PROTEIN 7.5 g/dL (6.7-8.2)
[2020-06-12 19:09] LABS: CRP - C-REACTIVE PROTEIN < 1.0 mg/dL (0-1.0)
[2020-06-13 10:39] LABS: MAGNESIUM 2.2 mg/dL (1.7-2.8)
== END 2020-06-12 23:59 | disposition home or self-care (01) ==
LOC: LAB.WCP 08:00
PROVIDERS: ATTEND Nurse Practitioner
DX: R06.02 Shortness of breath (principal); Z79.899 Other long term (current) drug therapy; R42 Dizziness and giddiness; F10.10 Alcohol abuse, uncomplicated; R20.2 Paresthesia of skin
CPT/HCPCS: 36415; 80053; 83735; 85379; 85651; 86140

== ENCOUNTER 2020-07-17 08:00 | Outpatient (CLI) | payer MEDICAID ==
[2020-07-17 18:21] LABS: BASOPHILS % (AUTO) 0.4 %; EOSINOPHILS # (AUTO) 0.4 10^3/uL (0.0-0.7); EOSINOPHILS % (AUTO) 5.7 %; HCT - HEMATOCRIT 43.6 % (42.0-52.0); HGB - HEMOGLOBIN 14.4 g/dL (14.0-18.0); LYMPHOCYTES # (AUTO) 1.6 10^3/uL (1.5-3.5); LYMPHOCYTES % (AUTO) 23.6 %; MEAN CORPUSCULAR HEMOGLOBIN 29.6 pg (27.0-31.0); MEAN CORPUSCULAR VOLUME 89.5 fL (80.0-94.0); MEAN PLATELET VOLUME 11.3 fL (7.4-11.4); MONOCYTES # (AUTO) 0.6 10^3/uL (0.0-1.0); MONOCYTES % (AUTO) 8.4 %; NEUTROPHILS # (AUTO) 4.2 10^3/uL (1.5-6.6); NEUTROPHILS % (AUTO) 61.5 %; PLT - PLATELET COUNT 172 10^3/uL (130-450); RED BLOOD COUNT 4.87 10^6/uL (4.70-6.10); RED CELL DISTRIBUTION WIDTH 12.9 % (12.0-15.0); WHITE BLOOD COUNT 6.8 x10^3/uL (4.8-10.8)
[2020-07-17 18:40] LABS: ALBUMIN 4.2 g/dL (3.2-5.5); ALBUMIN/GLOBULIN RATIO 1.6 (1.0-2.2); BILIRUBIN,TOTAL 0.7 mg/dL (0.2-1.0); CALCIUM 9.2 mg/dL (8.5-10.3); CREATININE 0.7 mg/dL (0.6-1.2); POTASSIUM 4.3 mmol/L (3.5-5.0); TOTAL PROTEIN 6.9 g/dL (6.7-8.2)
== END 2020-07-17 23:59 | disposition home or self-care (01) ==
LOC: LAB.WCP 08:00
PROVIDERS: ATTEND Nurse Practitioner
DX: Z79.899 Other long term (current) drug therapy (principal)
CPT/HCPCS: 36415; 80053; 85025

== ENCOUNTER 2020-08-15 11:17 | Emergency (ER) | payer MEDICAID ==
--- OUTSIDE RECORDS SUMMARY | 2020-08-15 11:21 | EXTERNAL MEDICAL SUMMARY RPT | Continuity of Care Document ---
:1975 Demographics Phone Unavailable Preferred Language Tunisian Marital Status Unknown Hoahaoism Affiliation Unknown Race Unknown Ethnic Group Unknown Author Organization [place] Address [address] [place] [address] Phone Care Team Providers Name Role Phone Tamiko Unavailable Unavailable Problems date description facility [id number] Unspecified speech disturbances [facility] [id number] Patient's noncompliance with other [facility] and reg [id number] Paresthesia of skin [facility]
--- OUTSIDE RECORDS SUMMARY | 2020-08-15 11:23 | EXTERNAL MEDICAL SUMMARY RPT | Continuity of Care Document ---
:1975 Demographics Phone Unavailable Preferred Language Central African Marital Status Unknown Mandaen Affiliation Unknown Race Unknown Ethnic Group Unknown Author Organization [place] Address [address] [place] [address] Phone Care Team Providers Name Role Phone Tamiko Unavailable Unavailable Problems date description facility [id number] Unspecified speech disturbances [facility] [id number] Patient's noncompliance with other [facility] and reg [id number] Paresthesia of skin [facility]
--- NOTE | 2020-08-15 11:59 | ED Physician Documentation ---
PD HPI URI - Stated complaint Stated Complaint: COUGHING - Chief complaint Chief Complaint: Resp - History obtained from History obtained from: Patient - History of Present Illness Timing - onset: How many weeks ago (1) Timing duration: Weeks (1) Timing details: Gradual onset, Still present (Worsening cough associated with dyspnea. He does have a home oximeter and noted his oxygenation go down to 88- 90 while coughing. It did recover after. Nonproductive cough but feeling like bronchial inflammation. No improvement with home MDIs.) Associated symptoms: Dry cough, Chest pain (central with coughing), Dyspnea. No: Fever, Chills, Swollen nodes, NVD Contributing factors: COPD / asthma, Other (no recent immunization). No: Sick contact, Travel, Immunocompromised Improves by: No: MDI/nebulizer Worsened by: Activity Similar symptoms before: Diagnosis (asthma, with home MDI and nebulizers) Recently seen: Not recently seen Review of Systems Constitutional: reports: Fever (felt sweaty during night last night), Chills, Myalgias Nose: denies: Rhinorrhea / runny nose, Congestion Throat: reports: Dental pain / toothache (chronic right lower dental pain with recent worsening and feeling gum swelling. Has had prior referral to Oral Surgery clinic but appt not until October. Request possible local referral.). denies: Sore throat Cardiac: reports: Chest pain / pressure (anterior with coughing) Respiratory: reports: Dyspnea, Cough, Wheezing PD PAST MEDICAL HISTORY - Past Medical History Past Medical History: Yes Cardiovascular: Hypertension, High cholesterol, Coronary artery disease, NH, Murmur Respiratory: Asthma, Sleep apnea, CPAP use Neuro: TIA, Migraines, Peripheral neuropathy Endocrine/Autoimmune: Type 2 diabetes GI: GERD, Ulcers, Other : Kidney stones, Other HEENT: Chronic vision loss Psych: None Musculoskeletal: Chronic back pain Derm: None Other Past Medical History: bladder cancer - Past Surgical History 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 - Present Medications Home Medications: Ambulatory Orders Medication Instructions Recorded Confirmed Aspirin 325 mg PO DAILY 05/13/19 04/26/20 Fluticasone [Flonase] 1 sprays GLENYS BID 05/13/19 08/15/20 Ipratropium [place] 1 spray NS TID 05/13/19 08/15/20 Metformin HCl 500 mg PO DAILY 05/13/19 08/15/20 Metoprolol Succinate 50 mg PO BID 05/13/19 08/15/20 Nitroglycerin 0.4 mg SL PRN PRN 05/13/19 08/15/20 Ipratropium/Albuterol [Duoneb] 3 ml INH Q6H PRN 04/26/20 08/15/20 Omeprazole 20 mg PO BID 04/26/20 08/15/20 Oxymetazoline HCl [Afrin] 1 spray NS PRN PRN 04/26/20 08/15/20 diazePAM [Valium] 5 mg PO BID PRN 04/26/20 08/15/20 Albuterol Sulf [Ventolin Hfa 1 - 2 puffs IH Q4HR PRN 08/15/20 08/15/20 Inhaler] Amoxicillin 500 mg PO TID 6 Days #18 cap 08/15/20 Benzonatate [Tessalon] 100 mg PO TID PRN #30 cap 08/15/20 Fluticasone Propion/Salmeterol 1 puffs IH DAILY 08/15/20 08/15/20 [Fluticasone-Salmeterol 250-50] HYDROcod/ACETAM 5/325 [[place] 5/325] 1 ea PO Q6H PRN #14 tablet 08/15/20 dexAMETHasone [Decadron] 4 mg PO DAILY #7 tablet 08/15/20 - Allergies Allergies/Adverse Reactions: Allergies Allergy/AdvReac Type Severity Reaction Status Date / Time Sulfa (Sulfonamide Allergy Anaphylaxis Verified 08/15/20 11:27 Antibiotics) - Social History Does the pt smoke?: Yes Smoking Status: Current some day smoker Does the pt drink ETOH?: Yes Does the pt have substance abuse?: No - Immunizations Immunizations are current?: Yes - POLST Patient has POLST: No PD ED PE NORMAL - Vitals Vital signs reviewed: Yes - General General: Alert and oriented X 3, Well developed/nourished, Other (appears anxious and somewhat in pain mainly from right lower tooth. ) - HEENT HEENT: Pharynx benign. No: Dentition benign (teeth decay to gumline diffusely with tender right lower and some gum swelling. No fluctuance. ) - Neck Neck: Supple, no meningeal sign, No adenopathy - Cardiac Cardiac: RRR, No murmur - Respiratory Respiratory: No respiratory distress. No: Clear bilaterally (no coarse sounds. Central exp wheezing noted. No accessory muscle use. ) - Abdomen Abdomen: Soft, Non tender - Derm Derm: Normal color, Warm and dry - Extremities Extremities: No edema, No calf tenderness / cord - Neuro Neuro: Alert and oriented X 3, No motor deficit, Normal speech Results - Vitals Vitals: Vital Signs - 24 hr 08/15/20 08/15/20 08/15/20 11:27 13:03 13:40 Temperature 36.9 C Heart Rate 91 89 86 Respiratory 20 20 18 Rate Blood Pressure 153/94 H 153/86 H O2 Saturation 98 96 Oxygen O2 Source Room air - Labs Labs: Laboratory Tests 08/15/20 13:56 Coronavirus (PCR) NEGATIVE - Rads (name of study) chest xray Radiology: Prelim report reviewed (no infiltrates nor acute process. ), See rad report PD MEDICAL DECISION MAKING - ED course Complexity details: considered differential (has asthma and increasing cough/dyspnea. CXR clear. No clearly infectious, but guidelines suggest better longer improvement with abx along with steroids/inhalers. He is having increased pain in chronic dental pain too, so pain meds short term. Dual coverage of abx for that. ), d/w patient Departure - Departure Disposition: 01 Home, Self Care Clinical Impression: Persistent cough, Chronic dental pain, Dental infection Dyspnea Qualifiers: Dyspnea type: shortness of breath Qualified Code(s): R06.02 - Shortness of breath Condition: Stable Record reviewed to determine appropriate education?: Yes Follow-Up: Kane Ceja MD [Primary Care Provider] - Nathaniel Pineda DDS [Provider Admit Priv/Credential] - Prescriptions: Amoxicillin 500 mg PO TID 6 Days #18 cap dexAMETHasone [Decadron] 4 mg PO DAILY #7 tablet HYDROcod/ACETAM 5/325 [[place] 5/325] 1 ea PO Q6H PRN #14 tablet PRN Reason: Pain Benzonatate [Tessalon] 100 mg PO TID PRN #30 cap PRN Reason: Cough Comments: Your chest x-ray is clear without any signs of pneumonia. Your Covid test should result in the next day or 2. The results would be available through the patient portal. For your cough and trouble breathing, I would have you continue with your nebulizer or albuterol inhaler 4 times a day for the next several days to week. Add Decadron steroid daily for the next week. Also Tessalon for cough suppression 3 times a day for the next week as well. Amoxicillin as directed for likely bronchial infection. Add hydrocodone pain medicine if needed for cough and/or pain. I included Dr. Pineda' office number regarding your need for oral surgery. Call their office and see if they accept your type of insurance or such. Otherwise follow-up with the as referred by your PCP. Discharge Date/Time: 08/15/20 14:09
[2020-08-15] MEDS ORDERED: ALBUTEROL NEB 2.5 MG/3 ML INH STA (12:22)
[2020-08-15] MEDS ORDERED: BENZONATATE 100 MG CAPSULE PO STA (12:23)
[2020-08-15] MEDS ORDERED: KETOROLAC 30 MG/ML VIAL IM STA (12:23)
[2020-08-15] MEDS ORDERED: CHERRY SYRUP 10 ML UDC PO ONE (12:23)
[2020-08-15] MEDS ORDERED: DEXAMETHASONE 10 MG/ML VIAL PO STA (12:23)
[2020-08-15] MEDS ORDERED: HYDROcod/ACETAM 5/325 MG TABLET PO STA (12:24)
[2020-08-15 13:40] VITALS: BP 153/86
--- NOTE | 2020-08-15 14:32 | XRAY Report ---
PROCEDURE: Chest 2 View X-Ray INDICATIONS: dyspnea/ cough TECHNIQUE: 2 view(s) of the chest. COMPARISON: Chest x-ray 10/26/2019 FINDINGS: Surgical changes and devices: None. Lungs and pleura: No pleural effusions or pneumothorax. Lungs are clear. Mediastinum: Mediastinal contours are normal. Heart size is normal. Bones and chest wall: No suspicious bony abnormalities. Soft tissues appear unremarkable. IMPRESSION: No acute pulmonary process. Reviewed by: Angella Mcwilliams MD on 08/15/2020 2:31 PM PDT Approved by: Angella Mcwilliams MD on 08/15/2020 2:31 PM PDT Station ID: [id number]
== END 2020-08-15 14:09 | disposition home or self-care (01) ==
LOC: ED 11:17
DX: J45.909 Unspecified asthma, uncomplicated (principal); R05 Cough; K04.7 Periapical abscess without sinus; K02.9 Dental caries, unspecified; K08.89 Other specified disorders of teeth and supporting structures; G89.29 Other chronic pain; Z20.822 Contact with and (suspected) exposure to COVID-19; I10 Essential (primary) hypertension; E11.42 Type 2 diabetes mellitus with diabetic polyneuropathy; Z79.84 Long term (current) use of oral hypoglycemic drugs; F17.200 Nicotine dependence, unspecified, uncomplicated; Z79.82 Long term (current) use of aspirin
CPT/HCPCS: 71046; 87635; 94640; 96372; 99283; 99284; A9270

== ENCOUNTER 2020-08-18 15:01 | Outpatient (CLI) | payer MEDICAID ==
[2020-08-18 16:04] LABS: CALCIUM 9.4 mg/dL (8.5-10.3); CREATININE 0.8 mg/dL (0.6-1.2); POTASSIUM 4.2 mmol/L (3.5-5.0)
[2020-08-18] MEDS ORDERED: IOPAMIDOL-300 100 ML VIAL IVP ONE (16:37)
--- NOTE | 2020-08-18 17:01 | CT Report ---
PROCEDURE: CHEST W INDICATIONS: HEMOPTYSIS CONTRAST: IV CONTRAST: Isovue 300 ml: 100 PO CONTRAST: *NO PO CONTRAST TECHNIQUE: After the administration of intravenous contrast, 5 mm thick sections acquired from the pulmonary api sarah to the posterior costophrenic angles. 7 mm thick coronal MIP reformats were acquired. For radia tion dose reduction, the following was used: automated exposure control, adjustment of mA and/or kV according to patient size. COMPARISON: None. FINDINGS: CHEST: Lungs: Scattered subsegmental scarring/atelectasis. No acute consolidation. Diffuse peribronchial cuf fing suggestive of nonspecific bronchitis and/or reactive airways disease. Pleura: No pleural effusion or pneumothorax. Heart: Normal. Lymph nodes: Normal. Thyroid: Negative Aorta: Normal Pulmonary arteries: Normal. Esophagus: Normal. Bones: Diffuse spondolytic changes and facet arthropathy. No compression fracture. Upper abdomen: Hepatic steatosis incidentally noted. IMPRESSION: Diffuse peribronchial cuffing suggestive of nonspecific bronchitis and/or reactive airways disease. No acute consolidation Reviewed by: Nadir Alexandra MD on 08/18/2020 5:00 PM PDT Approved by: Nadir Alexandra MD on 08/18/2020 5:00 PM PDT Station ID: [id number]
== END 2020-08-18 15:02 | disposition home or self-care (01) ==
LOC: LAB 15:01
PROVIDERS: ATTEND Internal Medicine
DX: R04.2 Hemoptysis (principal); R91.8 Other nonspecific abnormal finding of lung field
CPT/HCPCS: 36415; 71260; 80048; Q9967

== ENCOUNTER 2020-08-28 09:29 | Emergency (ER) | payer MEDICAID ==
--- OUTSIDE RECORDS SUMMARY | 2020-08-28 09:32 | EXTERNAL MEDICAL SUMMARY RPT | Continuity of Care Document ---
:1975 Demographics Phone Unavailable Preferred Language Guamanian Marital Status Unknown Christianity Affiliation Unknown Race Unknown Ethnic Group Unknown Author Organization [place] [address] [place] [address] Phone Care Team Providers Name Role Phone Tamiko Unavailable Unavailable Problems date description facility [id number] Unspecified speech disturbances [facility] [id number] Patient's noncompliance with other [facility] and reg [id number] Paresthesia of skin [facility]
--- OUTSIDE RECORDS SUMMARY | 2020-08-28 09:47 | EXTERNAL MEDICAL SUMMARY RPT | Continuity of Care Document ---
:1975 Demographics Phone Unavailable Preferred Language German Marital Status Unknown Jew Affiliation Unknown Race Unknown Ethnic Group Unknown Author Organization [place] Address [address] [place] [address] Phone Care Team Providers Name Role Phone Tamiko Unavailable Unavailable Problems date description facility [id number] Unspecified speech disturbances [facility] [id number] Patient's noncompliance with other [facility] and reg [id number] Paresthesia of skin [facility]
--- NOTE | 2020-08-28 10:01 | ED Physician Documentation ---
PD HPI HEENT - Stated complaint Stated Complaint: FACE PX - Chief complaint Chief Complaint: Heent - History obtained from History obtained from: Patient - History of Present Illness Timing - onset: How many months ago (several) Timing - details: Gradual onset, Waxing and waning (he states pain was improved but not gone with recent course antibiotics and pain meds, steroids. has had brief improvement with similar in the past. Saw a dentist today, who said he needed to go with current appt with Dental Clinic in September as the dentist he saw felt it too complicated.) Location: Tooth (right upper teeth with caries and decay, gum swelling and Dx of abscess chronically. He has tried to get dental extractions but referred to Oral Surgery. Has appt Dental October 01(?) Has tried to see local dentists.) Associated symptoms: No: Fever, Congestion Similar symptoms before: Diagnosis (dental abscess/infection with nerve irritation.) Recently seen: Clinic (dentist/oral surgeon (DMD) office today, and again told that it is more complicated, suggested to keep appt with in September. Pt came direct here from that office due to pain. The provider did not offer any Rxs.), Emergency Dept (last week) Review of Systems Constitutional: reports: Myalgias. denies: Fever, Chills Nose: denies: Rhinorrhea / runny nose, Congestion Throat: reports: Dental pain / toothache. 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 - Present Medications Home Medications: Ambulatory Orders Medication Instructions Recorded Confirmed Aspirin 325 mg PO DAILY 05/13/19 08/28/20 Fluticasone [Flonase] 1 sprays GLENYS BID 05/13/19 08/28/20 Ipratropium [place] 1 spray NS TID 05/13/19 08/28/20 Metformin HCl 500 mg PO DAILY 05/13/19 08/28/20 Metoprolol Succinate 50 mg PO BID 05/13/19 08/28/20 Nitroglycerin 0.4 mg SL PRN PRN 05/13/19 08/28/20 Ipratropium/Albuterol [Duoneb] 3 ml INH Q6H PRN 04/26/20 08/28/20 Omeprazole 20 mg PO BID 04/26/20 08/28/20 Oxymetazoline HCl [Afrin] 1 spray NS PRN PRN 04/26/20 08/28/20 diazePAM [Valium] 5 mg PO BID PRN 04/26/20 08/28/20 Albuterol Sulf [Ventolin Hfa 1 - 2 puffs IH Q4HR PRN 08/15/20 08/28/20 Inhaler] Benzonatate [Tessalon] 100 mg PO TID PRN #30 cap 08/15/20 08/28/20 Fluticasone Propion/Salmeterol 1 puffs IH DAILY 08/15/20 08/28/20 [Fluticasone-Salmeterol 250-50] dexAMETHasone [Decadron] 4 mg PO DAILY #7 tablet 08/15/20 08/28/20 Chlorhexidine Gluconate [Peridex] 15 ml MM TID #118 ml 08/28/20 Doxycycline Hyclate 100 mg PO BID #14 08/28/20 HYDROcod/ACETAM 5/325 [[place] 5/325] 1 ea PO Q6H PRN #20 tablet 08/28/20 Meloxicam [Mobic] 7.5 mg PO BID 10 Days #20 tablet 08/28/20 - Allergies Allergies/Adverse Reactions: Allergies Allergy/AdvReac Type Severity Reaction Status Date / Time Sulfa (Sulfonamide Allergy Anaphylaxis Verified 08/28/20 09:36 Antibiotics) - Social History Does the pt smoke?: Yes Smoking Status: Current every day smoker Does the pt drink ETOH?: Yes Does the pt have substance abuse?: No - Immunizations Immunizations are current?: Yes - POLST Patient has POLST: No PD ED PE NORMAL - Vitals Vital signs reviewed: Yes - General General: Alert and oriented X 3, Well developed/nourished, Other (appears in pain and is also very anxious, talking pressuredly, but is polite and nonthreatening. ) - HEENT HEENT: No: Dentition benign (significant decay diffusely. There is swelling and redness, without fluctuance right upper canine tooth area. ) - Neck Neck: Supple, no meningeal sign, No adenopathy - Cardiac Cardiac: RRR, No murmur - Respiratory Respiratory: Clear bilaterally - Derm Derm: Normal color, Warm and dry - Neuro Neuro: Alert and oriented X 3, No motor deficit, Normal speech Results - Vitals Vitals: Vital Signs - 24 hr 08/28/20 08/28/20 09:37 11:22 Temperature 36.8 C Heart Rate 90 90 Respiratory 18 20 Rate Blood Pressure 143/80 H 143/79 H O2 Saturation 99 95 Oxygen O2 Source Room air Procedures - Regional nerve block Nerve block site: Infraorbital Right / left: Right Nerve block anesthesia: Other (ropiracaine 0.5%) Nerve block aftercare: Excellent anesthesia, Patient tolerated well, No complications PD MEDICAL DECISION MAKING - ED course Complexity details: reviewed old records, considered differential, d/w patient Departure - Departure Disposition: Home, Self Care Clinical Impression: Dental infection, Chronic dental pain Condition: Stable Record reviewed to determine appropriate education?: Yes Instructions: ED Tooth Pain Follow-Up: Nathaniel Pineda DDS [Provider Admit Priv/Credential] - Prescriptions: Doxycycline Hyclate 100 mg PO BID #14 Meloxicam [Mobic] 7.5 mg PO BID 10 Days #20 tablet HYDROcod/ACETAM 5/325 [[place] 5/325] 1 ea PO Q6H PRN #20 tablet PRN Reason: Pain Chlorhexidine Gluconate [Peridex] 15 ml MM TID #118 ml Comments: Use the doxycycline antibiotic twice daily with food. We can try a different anti-inflammatory, meloxicam, and see if it helps better than previous ones. Add Tylenol or hydrocodone/acetaminophen every 4-6 hours as needed for pains. Rinse orally with antiseptic mouth rinse twice daily to help with germs around the surface and right at the gums. Follow-up with your primary care at the next available appointment for recheck for medication. Follow-up with the [facility] dental clinic as planned in September. Alternatively you can try calling Dr. Arrington's office and see if they accept your insurance etc. in would be able to take care of it more locally. Discharge Date/Time: 08/28/20 11:28
[2020-08-28] MEDS ORDERED: KETOROLAC 30 MG/ML VIAL IM STA (10:12)
[2020-08-28] MEDS ORDERED: DOXYCYCLINE 100 MG TABLET PO STA (10:12)
[2020-08-28] MEDS ORDERED: ROPIVACAINE 0.5% PF 20 ML AMPULE SUBQ STA (10:13)
[2020-08-28 11:22] VITALS: BP 143/79
== END 2020-08-28 11:28 | disposition home or self-care (01) ==
LOC: ED 09:29
DX: K04.7 Periapical abscess without sinus (principal); K08.89 Other specified disorders of teeth and supporting structures; G89.29 Other chronic pain; K02.9 Dental caries, unspecified; I10 Essential (primary) hypertension; E11.42 Type 2 diabetes mellitus with diabetic polyneuropathy; Z79.84 Long term (current) use of oral hypoglycemic drugs; Z79.82 Long term (current) use of aspirin
CPT/HCPCS: 64400; 96372; 99284; A9270

== ENCOUNTER 2020-09-04 14:11 | Outpatient (CLI) | payer MEDICAID ==
[2020-09-04 14:54] LABS: BILIRUBIN,URINE NEGATIVE (NEGATIVE); GLUCOSE, URINE (UA) NEGATIVE (NEGATIVE); KETONES,URINE (UA) TRACE mg/dL (NEGATIVE); LEUKOCYTE ESTERASE, URINE NEGATIVE (NEGATIVE); NITRITE,URINE NEGATIVE (NEGATIVE); OCCULT BLOOD,URINE NEGATIVE (NEGATIVE); PH,URINE 5.5 PH (5.0-7.5); PROTEIN,URINE NEGATIVE (NEGATIVE); UROBILINOGEN,URINE 0.2 (NORMAL) E.U./dL (NORMAL)
[2020-09-04 15:00] LABS: BASOPHILS % (AUTO) 0.3 %; EOSINOPHILS # (AUTO) 0.3 10^3/uL (0.0-0.7); EOSINOPHILS % (AUTO) 3.8 %; LYMPHOCYTES # (AUTO) 1.3 10^3/uL (1.5-3.5); LYMPHOCYTES % (AUTO) 20.1 %; MEAN CORPUSCULAR HEMOGLOBIN 29.9 pg (27.0-31.0); MEAN CORPUSCULAR HGB CONC 34.1 g/dL (32.0-36.0); MEAN CORPUSCULAR VOLUME 87.6 fL (80.0-94.0); MONOCYTES # (AUTO) 0.4 10^3/uL (0.0-1.0); MONOCYTES % (AUTO) 6.2 %; NEUTROPHILS # (AUTO) 4.6 10^3/uL (1.5-6.6); NEUTROPHILS % (AUTO) 69.3 %; PLT - PLATELET COUNT 149 10^3/uL (130-450); RED BLOOD COUNT 5.02 10^6/uL (4.70-6.10); RED CELL DISTRIBUTION WIDTH 12.8 % (12.0-15.0); WHITE BLOOD COUNT 6.7 x10^3/uL (4.8-10.8)
[2020-09-04 15:07] LABS: CREATININE,URINE 235.7 mg/dL; MICROALBUM/CREATININE RATIO,UR 3.4 ug/mg (<30.0); MICROALBUMIN,URINE 0.8 mg/dL (0-300.0)
[2020-09-04 15:13] LABS: ALBUMIN 4.7 g/dL (3.2-5.5); ALBUMIN/GLOBULIN RATIO 1.6 (1.0-2.2); ALKALINE PHOSPHATASE 57 IU/L (42-121); ALT ALANINE AMINOTRANSFERASE 34 IU/L (10-60); AST ASPARTATE AMINOTRANSFERASE 24 IU/L (10-42); BILIRUBIN,TOTAL 1.1 mg/dL (0.2-1.0); BUN - BLOOD UREA NITROGEN 22 mg/dL (6-20); CALCIUM 9.8 mg/dL (8.5-10.3); CARBON DIOXIDE - CO2 25 mmol/L (21-32); CHLORIDE 104 mmol/L (101-111); CHOL/HDL RATIO 4.3 (<5.0); CHOLESTEROL 160 mg/dL; CREATININE 0.9 mg/dL (0.6-1.2); GFR - MDRD 91 (>89); GLUCOSE 108 mg/dL (70-100); HDL CHOLESTEROL 37 mg/dL; LDL CHOLESTEROL,CALCULATED 97 mg/dL; LDL/HDL RATIO 2.6 (<3.6); POTASSIUM 4.4 mmol/L (3.5-5.0); SODIUM 140 mmol/L (135-145); TOTAL PROTEIN 7.7 g/dL (6.7-8.2); TRIGLYCERIDES 128 mg/dL; VLDL CHOLESTEROL 26 mg/dL
[2020-09-04 15:14] LABS: BACTERIA,URINE None Seen /HPF (None Seen); CLARITY,URINE CLEAR (CLEAR); RBC,URINE None Seen /HPF (0-5); SQUAMOUS EPITHELIAL CELL,UR FEW Squamous (<= Few); WBC,URINE 0-3 /HPF (0-3)
[2020-09-04 15:24] LABS: THYROID STIMULATING HORMONE 0.89 uIU/mL (0.34-5.60)
[2020-09-04 20:56] LABS: ESTIMATED AVERAGE GLUCOSE 117 mg/dL (70-100); HEMOGLOBIN A1c% 5.7 % (4.27-6.07)
== END 2020-09-04 14:12 | disposition home or self-care (01) ==
LOC: LAB 14:11
PROVIDERS: ATTEND Internal Medicine
DX: I10 Essential (primary) hypertension (principal); E11.9 Type 2 diabetes mellitus without complications; C67.9 Malignant neoplasm of bladder, unspecified
CPT/HCPCS: 36415; 80053; 80061; 81001; 82043; 82570; 83036; 83721; 84443; 85025; 87086

== ENCOUNTER 2020-10-26 14:35 | Emergency (ER) | payer MEDICAID ==
[2020-10-26] MEDS ORDERED: ROPIVACAINE 0.5% PF 20 ML AMPULE SUBQ STA (16:51)
--- NOTE | 2020-10-26 16:53 | ED Physician Documentation ---
History of Present Illness - Stated complaint Stated Complaint: MOUTH PX - Chief complaint Chief Complaint: Heent - History obtained from History obtained from: Patient - Additonal information Additional information: 45-year-old gentleman with longstanding issues with the right maxillary teeth presents with severe pain related to same. Has an appointment with OMFS at [facility] in about 10 days for 5 extractions but cannot manage the pain right now. No fevers. No facial swelling. 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 - Present Medications Home Medications: Ambulatory Orders Medication Instructions Recorded Confirmed Aspirin 325 mg PO DAILY 05/13/19 08/28/20 Fluticasone [Flonase] 1 sprays GLENYS BID 05/13/19 08/28/20 Ipratropium [place] 1 spray NS TID 05/13/19 08/28/20 Metformin HCl 500 mg PO DAILY 05/13/19 08/28/20 Metoprolol Succinate 50 mg PO BID 05/13/19 08/28/20 Nitroglycerin 0.4 mg SL PRN PRN 05/13/19 08/28/20 Ipratropium/Albuterol [Duoneb] 3 ml INH Q6H PRN 04/26/20 08/28/20 Omeprazole 20 mg PO BID 04/26/20 08/28/20 Oxymetazoline HCl [Afrin] 1 spray NS PRN PRN 04/26/20 08/28/20 diazePAM [Valium] 5 mg PO BID PRN 04/26/20 08/28/20 Albuterol Sulf [Ventolin Hfa 1 - 2 puffs IH Q4HR PRN 08/15/20 08/28/20 Inhaler] Benzonatate [Tessalon] 100 mg PO TID PRN #30 cap 08/15/20 08/28/20 Fluticasone Propion/Salmeterol 1 puffs IH DAILY 08/15/20 08/28/20 [Fluticasone-Salmeterol 250-50] dexAMETHasone [Decadron] 4 mg PO DAILY #7 tablet 08/15/20 08/28/20 Chlorhexidine Gluconate [Peridex] 15 ml MM TID #118 ml 08/28/20 Doxycycline Hyclate 100 mg PO BID #14 08/28/20 HYDROcod/ACETAM 5/325 [[place] 5/325] 1 ea PO Q6H PRN #20 tablet 08/28/20 Meloxicam [Mobic] 7.5 mg PO BID 10 Days #20 tablet 08/28/20 Oxycodone HCl/Acetaminophen 1 - 2 each PO Q6H PRN #14 tablet 10/26/20 [Percocet 5-325 mg Tablet] clindamycin HCL [Cleocin HCl] 300 mg PO QID #28 cap 10/26/20 - Allergies Allergies/Adverse Reactions: Allergies Allergy/AdvReac Type Severity Reaction Status Date / Time Sulfa (Sulfonamide Allergy Anaphylaxis Verified 10/26/20 15:04 Antibiotics) - Social History Does the pt smoke?: Yes Smoking Status: Current every day smoker Does the pt drink ETOH?: Yes Does the pt have substance abuse?: No - Immunizations Immunizations are current?: Yes - POLST Patient has POLST: No PD ED PE NORMAL - Vitals Vital signs reviewed: Yes - General General: Alert and oriented X 3, Other (Appears anxious, slightly agitated) - HEENT HEENT: Other (Generally poor dentition with tender canine on the right maxilla, no trismus or facial swelling.) - Neck Neck: Supple, no meningeal sign, No bony TTP - Neuro Neuro: Alert and oriented X 3, Normal speech Results - Vitals Vitals: Vital Signs - 24 hr 10/26/20 14:58 Temperature 36.8 C Heart Rate 90 Respiratory 16 Rate Blood Pressure 146/86 H O2 Saturation 95 Oxygen O2 Source Room air Procedures - Regional nerve block Nerve block site: Infraorbital Right / left: Right Nerve block anesthesia: Other (A local and infraorbital nerve block was done with about 4 mL of 0.5% ropivacaine on the right side with good relief) PD MEDICAL DECISION MAKING - ED course ED course: I am prescribing a short course of short-acting opioid pain medication for this patient. 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 I have discussed that the opioids are for short term therapy only, and will not be refilled from the ED. Departure - Departure Disposition: 01 Home, Self Care Clinical Impression: Dental infection Condition: Good Record reviewed to determine appropriate education?: Yes Instructions: ED Tooth Pain Prescriptions: clindamycin HCL [Cleocin HCl] 300 mg PO QID #28 cap Oxycodone HCl/Acetaminophen [Percocet 5-325 mg Tablet] 1 - 2 each PO Q6H PRN #14 tablet PRN Reason: pain Comments: Follow-up with the oral maxillofacial surgeons as scheduled. Return for new or worsening symptoms. I am prescribing a short course of narcotic pain medication for you. These are potentially dangerous and addictive medications that should be used carefully. These medications may constipate you. Take an unsd-sfi-ibwqrgy stool softener (docusate) twice daily with plenty of water while taking these medications. If y ou go 24 hours without a bowel movement, take dnbs-aro-[id number] miralax, per package instructions. Do not drink or drive while taking these medications. If you received narcotic or sedating medications while in the emergency department, do not drive for 24 hours. Store this medication in a safe, secure place and out of reach of children. It is a violation of federal law to give or sell this medication to another person or to use in a manner other than prescribed. The ED will not refill narcotic prescriptions, including prescriptions lost or stolen. To dispose of unwanted medications: 1. [facility] at [address] in [place] has a medication drop box. They accept prescription medications (in pill form) Friday through Friday 9:00 a.m. to 5:00 p.m. 2. The [facility] accepts prescription medications (in pill form only) for disposal year round. Call for more information. 3. Contact the [facility] for the next [facility] sponsored prescription drug collection event. , [phone], or [phone]; Note that many narcotic pain relievers also contain Tylenol/acetaminophen. Please ensure that your total dose of acetaminophen from all sources does not exceed 3 g (3000 mg) per day.
[2020-10-26 17:22] VITALS: BP 140/80
== END 2020-10-26 17:20 | disposition home or self-care (01) ==
LOC: ED 14:35
DX: K04.7 Periapical abscess without sinus (principal); I10 Essential (primary) hypertension; E11.9 Type 2 diabetes mellitus without complications; Z79.84 Long term (current) use of oral hypoglycemic drugs; F17.200 Nicotine dependence, unspecified, uncomplicated
CPT/HCPCS: 64400

== ENCOUNTER 2020-11-05 08:00 | Outpatient (CLI) | payer MEDICAID | END 2020-11-05 23:59 | disposition home or self-care (01) | LOC: LAB 08:00 | DX: Z01.812 Encounter for preprocedural laboratory examination (principal); Z20.822 Contact with and (suspected) exposure to COVID-19 ==

== ENCOUNTER 2020-11-05 10:24 | Emergency (ER) | payer MEDICAID ==
[2020-11-05] MEDS ORDERED: ROPIVACAINE 0.5% PF 20 ML AMPULE SUBQ STA (11:12)
--- NOTE | 2020-11-05 11:13 | ED Physician Documentation ---
PD HPI HEENT - Stated complaint Stated Complaint: FACE PX - Chief complaint Chief Complaint: Heent - History obtained from History obtained from: Patient - Additional information Additional information: 45-year-old gentleman seen here about a little over a week ago for uncontrolled dental pain. Has follow-up with [facility] in 2 days, he got good relief with the ropivacaine block last week and requested to be repeated and he also ran out of his pain medication. No fevers. 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 - Present Medications Home Medications: Ambulatory Orders Medication Instructions Recorded Confirmed Aspirin 325 mg PO DAILY 05/13/19 08/28/20 Fluticasone [Flonase] 1 sprays GLENYS BID 05/13/19 08/28/20 Ipratropium [place] 1 spray NS TID 05/13/19 08/28/20 Metformin HCl 500 mg PO DAILY 05/13/19 08/28/20 Metoprolol Succinate 50 mg PO BID 05/13/19 08/28/20 Nitroglycerin 0.4 mg SL PRN PRN 05/13/19 08/28/20 Ipratropium/Albuterol [Duoneb] 3 ml INH Q6H PRN 04/26/20 08/28/20 Omeprazole 20 mg PO BID 04/26/20 08/28/20 Oxymetazoline HCl [Afrin] 1 spray NS PRN PRN 04/26/20 08/28/20 diazePAM [Valium] 5 mg PO BID PRN 04/26/20 08/28/20 Albuterol Sulf [Ventolin Hfa 1 - 2 puffs IH Q4HR PRN 08/15/20 08/28/20 Inhaler] Benzonatate [Tessalon] 100 mg PO TID PRN #30 cap 08/15/20 08/28/20 Fluticasone Propion/Salmeterol 1 puffs IH DAILY 08/15/20 08/28/20 [Fluticasone-Salmeterol 250-50] dexAMETHasone [Decadron] 4 mg PO DAILY #7 tablet 08/15/20 08/28/20 Chlorhexidine Gluconate [Peridex] 15 ml MM TID #118 ml 08/28/20 Doxycycline Hyclate 100 mg PO BID #14 08/28/20 HYDROcod/ACETAM 5/325 [[place] 5/325] 1 ea PO Q6H PRN #20 tablet 08/28/20 Meloxicam [Mobic] 7.5 mg PO BID 10 Days #20 tablet 08/28/20 Oxycodone HCl/Acetaminophen 1 - 2 each PO Q6H PRN #14 tablet 10/26/20 [Percocet 5-325 mg Tablet] clindamycin HCL [Cleocin HCl] 300 mg PO QID #28 cap 10/26/20 Oxycodone HCl/Acetaminophen 1 - 2 each PO Q6H PRN #20 tablet 11/05/20 [Percocet 5-325 mg Tablet] - Allergies Allergies/Adverse Reactions: Allergies Allergy/AdvReac Type Severity Reaction Status Date / Time Sulfa (Sulfonamide Allergy Anaphylaxis Verified 11/05/20 10:51 Antibiotics) - Social History Does the pt smoke?: Yes Smoking Status: Current every day smoker Does the pt drink ETOH?: Yes Does the pt have substance abuse?: No - Immunizations Immunizations are current?: Yes - POLST Patient has POLST: No PD ED PE NORMAL - Vitals Vital signs reviewed: Yes - General General: Alert and oriented X 3, No acute distress - HEENT HEENT: Other (Generally poor dentition and some facial tenderness above the right maxillary canine without swelling or trismus.) - Neck Neck: Supple, no meningeal sign, No bony TTP - Neuro Neuro: Alert and oriented X 3, Normal speech Results - Vitals Vitals: Vital Signs - 24 hr 11/05/20 11/05/20 10:46 11:33 Temperature 37.1 C 36.8 C Heart Rate 83 80 Respiratory 18 12 Rate Blood Pressure 145/92 H 134/82 H O2 Saturation 95 97 Oxygen O2 Source Room air Procedures - Regional nerve block Nerve block site: Other (Inferior orbital nerve block done using intraorbital approach with about 4 mL of 0.5% ropivacaine) PD MEDICAL DECISION MAKING - ED course ED course: . Departure - Departure Disposition: 01 Home, Self Care Clinical Impression: Dental infection Condition: Good Record reviewed to determine appropriate education?: Yes Instructions: ED Tooth Pain Prescriptions: Oxycodone HCl/Acetaminophen [Percocet 5-325 mg Tablet] 1 - 2 each PO Q6H PRN #20 tablet PRN Reason: pain Comments: Follow-up with [facility] as scheduled in 2 days. Return for new or worsening symptoms. I am prescribing a short course of narcotic pain medication for you. These are potentially dangerous and addictive medications that should be used carefully. These medications may constipate you. Take an tesf-mdy-uzxaeku stool softener (docusate) twice daily with plenty of water while taking these medications. If you go 24 hours without a bowel movement, take qrli-asc-zrqnkbm miralax, per package instructions. Do not drink or drive while taking these medications. If you received narcotic or sedating medications while in the emergency department, do not drive for 24 hours. Store this medication in a safe, secure place and out of reach of children. It is a violation of federal law to give or sell this medication to another person or to use in a manner other than prescribed. The ED will not refill narcotic prescriptions, including prescriptions lost or stolen. To dispose of unwanted medications: 1. [facility] at [address] in [place] has a medication drop box. They accept prescription medications (in pill form) Friday through Friday 9:00 a.m. to 5:00 p.m. 2. The [facility] Police Department accepts prescription medications (in pill form only) for disposal year round. Call for more information. 3. Contact the [facility] for the next [facility] sponsored prescription drug collection event. , [phone], or [phone]; Note that many narcotic pain relievers also contain Tylenol/acetaminophen. Please ensure that your total dose of acetaminophen from all sources does not exceed 3 g (3000 mg) per day. Follow-up with [facility] as scheduled in 2 days. Return for new or worsening symptoms. I am prescribing a short course of narcotic pain medication for you. These are potentially dangerous and addictive medications that should be used carefully. These medications may constipate you. Take an gzhv-xjd-ymvqcsk stool softener (docusate) twice daily with plenty of water while taking these medications. If you go 24 hours without a bowel movement, take hwpf-boh-xxudyuo miralax, per package instructions. Do not drink or drive while taking these medications. If you received narcotic or sedating medications while in the emergency department, do not drive for 24 hours. Store this medication in a safe, secure place and out of reach of children. It is a violation of federal law to give or sell this medication to another person or to use in a manner other than prescribed. The ED will not refill narcotic prescriptions, including prescriptions lost or stolen. To dispose of unwanted medications: 1. [facility] [address] [facility] in [place] has a medication drop box. They accept prescription medications (in pill form) Friday through Friday 9:00 a.m. to 5:00 p.m. 2. The [facility] Police Department accepts prescription medications (in pill form only) for disposal year round. Call for more information. 3. Contact the [facility] for the next [facility] sponsored prescription drug collection event. , [phone], or [phone]; Note that many narcotic pain relievers also contain Tylenol/acetaminophen. Please ensure that your total dose of acetaminophen from all sources does not exceed 3 g (3000 mg) per day. Discharge Date/Time: 11/05/20 11:37
[2020-11-05 11:34] VITALS: BP 134/82
== END 2020-11-05 11:37 | disposition home or self-care (01) ==
LOC: ED 10:24
DX: K04.7 Periapical abscess without sinus (principal); I10 Essential (primary) hypertension; E11.42 Type 2 diabetes mellitus with diabetic polyneuropathy; Z79.84 Long term (current) use of oral hypoglycemic drugs; F17.200 Nicotine dependence, unspecified, uncomplicated
CPT/HCPCS: 64400

== ENCOUNTER 2020-11-13 16:00 | Emergency (ER) | payer MEDICAID ==
[2020-11-13] MEDS ORDERED: ROPIVACAINE 0.5% PF 20 ML AMPULE SUBQ STA (17:09)
[2020-11-13] MEDS ORDERED: cefTRIAXone 1 GM VIAL IVP STA (17:09)
--- NOTE | 2020-11-13 17:14 | ED Physician Documentation ---
History of Present Illness - Stated complaint Stated Complaint: INCISION ON FACE DRAINING - Chief complaint Chief Complaint: Heent - History obtained from History obtained from: Patient - History of Present Illness Timing: How many days ago (2) Pain level max: 10 Pain level now: 10 - Additonal information Additional information: Patient states he had several dental extractions at [facility] with "maxillofacial surgery". He states that this was done on 8 3. He states over the past 2 to 3 days he has had increasing pain and swelling to the site. He states that the stitches "burst and there was pus draining from his mouth. He states that he contacted [facility] who recommended he come there for evaluation. He states he could not get a ride there, so came here. Had fevers 10 1-1 02 at home. Not currently on antibiotics. Nothing makes it better or worse. Review of Systems Constitutional: reports: Fever (101-102), Chills Nose: denies: Rhinorrhea / runny nose, Congestion GI: denies: Vomiting, Diarrhea Skin: denies: Rash Musculoskeletal: denies: Neck pain, Back pain Neurologic: denies: Headache PD PAST MEDICAL HISTORY - Past Medical History Past Medical History: Yes Cardiovascular: Hypertension, High cholesterol, Coronary artery disease, [place], [place] Respiratory: Asthma, Sleep apnea, CPAP use Neuro: TIA, Migraines, Peripheral neuropathy Endocrine/Autoimmune: Type 2 diabetes GI: GERD, Ulcers, Other : Kidney stones, Other HEENT: Chronic vision loss Psych: None Musculoskeletal: Chronic back pain Derm: None - Past Surgical History 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 Cardiovascular: Cardiac catheterization, Angioplasty HEENT: Other - Present Medications Home Medications: Ambulatory Orders Medication Instructions Recorded Confirmed Aspirin 325 mg PO DAILY 05/13/19 11/13/20 Fluticasone [Flonase] 1 sprays GLENYS BID 05/13/19 11/13/20 Ipratropium [place] 1 spray NS TID 05/13/19 11/13/20 Metformin HCl 500 mg PO DAILY 05/13/19 11/13/20 Metoprolol Succinate 50 mg PO BID 05/13/19 11/13/20 Nitroglycerin 0.4 mg SL PRN PRN 05/13/19 11/13/20 Ipratropium/Albuterol [Duoneb] 3 ml INH Q6H PRN 04/26/20 11/13/20 Omeprazole 20 mg PO BID 04/26/20 11/13/20 Oxymetazoline HCl [Afrin] 1 spray NS PRN PRN 04/26/20 11/13/20 Albuterol Sulf [Ventolin Hfa 1 - 2 puffs IH Q4HR PRN 08/15/20 11/13/20 Inhaler] Fluticasone Propion/Salmeterol 1 puffs IH DAILY 08/15/20 11/13/20 [Fluticasone-Salmeterol 250-50] Acetaminophen [Tylenol] 650 mg PO Q6H PRN 11/13/20 11/13/20 Chlorhexidine Gluconate [Peridex] 15 ml MM BID #1 bottle 11/13/20 Ibuprofen [Motrin] 1 tablet PO Q8H PRN 11/13/20 11/13/20 Oxycodone HCl/Acetaminophen 1 - 2 each PO Q6H PRN #14 tablet 11/13/20 [Percocet 5-325 mg Tablet] clindamycin HCL [Cleocin HCl] 300 mg PO Q6H #40 cap 11/13/20 - Allergies Allergies/Adverse Reactions: Allergies Allergy/AdvReac Type Severity Reaction Status Date / Time Sulfa (Sulfonamide Allergy Anaphylaxis Verified 11/05/20 10:51 Antibiotics) - Social History Does the pt smoke?: Yes Smoking Status: Current every day smoker Does the pt drink ETOH?: Yes Does the pt have substance abuse?: No - Immunizations Immunizations are current?: Yes - POLST Patient has POLST: No PD ED PE NORMAL - Vitals Vital signs reviewed: Yes - General General: Alert and oriented X 3, No acute distress - HEENT HEENT: Moist mucous membranes, Other (Diffuse periodontal disease, the right upper dentition is poor throughout. There is erythema and swelling. No drainable abscess. Normal phonation. No trismus. No facial swelling or cellulitis.) - Neck Neck: Supple, no meningeal sign - Cardiac Cardiac: RRR - Respiratory Respiratory: No respiratory distress, Clear bilaterally - Derm Derm: Warm and dry - Neuro Neuro: Alert and oriented X 3 Results - Vitals Vitals: Vital Signs - 24 hr 11/13/20 11/13/20 16:11 19:00 Temperature 36.9 C 36.8 C Heart Rate 85 79 Respiratory 16 16 Rate Blood Pressure 128/79 144/85 H O2 Saturation 96 96 Oxygen O2 Source Room air - Labs Labs: Laboratory Tests 11/13/20 11/13/20 17:20 17:20 WBC 7.3 RBC 4.92 Hgb 14.6 Hct 42.2 MCV 85.8 MCH 29.7 MCHC 34.6 RDW 12.7 Plt Count 174 MPV 10.4 Neut # (Auto) 4.8 Lymph # (Auto) 1.6 [place] # (Auto) 0.5 Eos # (Auto) 0.4 Baso # (Auto) 0.0 Absolute Nucleated RBC 0.00 Nucleated RBC % 0.0 Sodium 138 Potassium 4.2 Chloride 103 Carbon Dioxide 26 Anion Gap 9.0 BUN 21 H Creatinine 0.8 Estimated GFR (MDRD) 104 Glucose 138 H Calcium 9.7 - Rads (name of study) Maxillofacial CT Radiology: Final report received, EMP read contemporaneously, See rad report (Enlarged right level 2 lymph node measuring 1 cm. A second prominent adjacent lymph node. ) Procedures - Regional nerve block Nerve block site: Infraorbital Right / left: Right Nerve block anesthesia: Other (ropivicaine 0.5%) Nerve block aftercare: Excellent anesthesia, Patient tolerated well, No complications PD MEDICAL DECISION MAKING - ED course Complexity details: considered differential, d/w patient ED course: No abscess or facial cellulitis on CT. Does have some likely reactive lymp hadenopathy. IV antibiotics given given his history of fever at home. Normal white count here. Pain well controlled. Infraorbital nerve block performed through the intraoral route. Tolerated well. Excellent anesthesia achieved. We will have him follow-up with his surgeon for further care. Patient counseled regarding signs and symptoms for which I believe and urgent re-evaluation would be necessary. Patient with good understanding of and agreement to plan and is comfortable going home at this time This document was made in part using voice recognition software. While efforts are made to proofread this document, sound alike and grammatical errors may occur. Departure - Departure Disposition: 01 Home, Self Care Clinical Impression: Dental infection Condition: Good Instructions: ED Tooth Pain Follow-Up: Kane Ceja MD [Primary Care Provider] - Within 3 Days Prescriptions: clindamycin HCL [Cleocin HCl] 300 mg PO Q6H #40 cap Oxycodone HCl/Acetaminophen [Percocet 5-325 mg Tablet] 1 - 2 each PO Q6H PRN #14 tablet PRN Reason: pain Chlorhexidine Gluconate [Peridex] 15 ml MM BID #1 bottle Comments: Follow-up with your dentist for further care. Return if you worsen. There are no drainable abscess on exam or on CT tonight. Take all antibiotics until gone. I am prescribing a short course of narcotic pain medication for you. These are potentially dangerous and addictive medications that should be used carefully. These medications may constipate you. Take an hvhi-itv-qjnmwqy stool softener (docusate) twice daily with plenty of water while taking these medications. If you go 24 hours without a bowel movement, take adat-jvf-otoeokd miralax, per package instructions. Do not drink or drive while taking these medications. If you received narcotic or sedating medications while in the emergency department, do not drive for 24 hours. Store this medication in a safe, secure place and out of reach of children. It is a violation of federal law to give or sell this medication to another person or to use in a manner other than prescribed. The ED will not refill narcotic prescriptions, including prescriptions lost or stolen. To dispose of unwanted medications: 1. [facility] at [address] in [place] has a medication drop box. They accept prescription medications (in pill form) Friday through Friday 9:00 a.m. to 5:00 p.m. 2. The [facility] accepts prescription medications (in pill form only) for disposal year round. Call for more information. 3. Contact the [facility] for the next [facility] sponsored prescription drug collection event. , [phone], or [phone]; Discharge Date/Time: 11/13/20 19:07
[2020-11-13 17:23] LABS: BASOPHILS % (AUTO) 0.4 %; EOSINOPHILS # (AUTO) 0.4 10^3/uL (0.0-0.7); EOSINOPHILS % (AUTO) 5.4 %; HCT - HEMATOCRIT 42.2 % (42.0-52.0); HGB - HEMOGLOBIN 14.6 g/dL (14.0-18.0); LYMPHOCYTES # (AUTO) 1.6 10^3/uL (1.5-3.5); MEAN CORPUSCULAR HEMOGLOBIN 29.7 pg (27.0-31.0); MEAN CORPUSCULAR HGB CONC 34.6 g/dL (32.0-36.0); MEAN CORPUSCULAR VOLUME 85.8 fL (80.0-94.0); MEAN PLATELET VOLUME 10.4 fL (7.4-11.4); MONOCYTES # (AUTO) 0.5 10^3/uL (0.0-1.0); MONOCYTES % (AUTO) 6.2 %; NEUTROPHILS # (AUTO) 4.8 10^3/uL (1.5-6.6); NEUTROPHILS % (AUTO) 65.7 %; PLT - PLATELET COUNT 174 10^3/uL (130-450); RED BLOOD COUNT 4.92 10^6/uL (4.70-6.10); RED CELL DISTRIBUTION WIDTH 12.7 % (12.0-15.0); WHITE BLOOD COUNT 7.3 x10^3/uL (4.8-10.8)
[2020-11-13 17:32] LABS: CALCIUM 9.7 mg/dL (8.5-10.3); CREATININE 0.8 mg/dL (0.6-1.2); POTASSIUM 4.2 mmol/L (3.5-5.0)
[2020-11-13] MEDS ORDERED: IOPAMIDOL-300 100 ML VIAL ONE (17:46)
[2020-11-13] MEDS ORDERED: IOPAMIDOL-300 100 ML VIAL IVP ONE (18:29)
--- NOTE | 2020-11-13 18:50 | CT Report ---
PROCEDURE: MAXILLOFACIAL W INDICATIONS: R sided "facial surgery" now with swelling, pain CONTRAST: IV CONTRAST: Isovue 300 ml: 100 PO CONTRAST: *NO PO CONTRAST TECHNIQUE: After the administration of intravenous contrast, 3.0 mm axial sections acquired from the mid-neck to the frontal sinuses, with coronal reformatting. For radiation dose reduction, the following was use d: automated exposure control, adjustment of mA and/or kV according to patient size. COMPARISON: None. FINDINGS: Image quality: Excellent. Soft tissues: No edema, masses, or fluid collections. Enlarged right level 2 lymph node measuring 1 cm short axis diameter, (15/). A second prominent adjacent lymph node measuring 0.7 cm, (). Vascular: Visualized vascular structures appear patent throughout. Bony vascular foramina and canal s appear normal. Bones: Facial bones appear intact, without fractures, erosions, or destruction. Visualized portions of the skull base and auditory canals also appear normal. Missing dentition. Sinuses: Mild mucosal thickening in the left maxillary sinus. Trace in the right maxillary sinus. Mas toid air cells are aerated. IMPRESSION: Enlarged right level 2 lymph node measuring 1 cm. A second prominent adjacent lymph node. Recommend clinical correlation. These could be reactive especially in the setting of recent surgery. Short-term follow-up ultrasound may be indicated. If concern for metastatic disease PET/CT could be c onsidered. Reviewed by: Dandre Pierce MD on 11/13/2020 6:48 PM PDT Approved by: Dandre Pierce MD on 11/13/2020 6:48 PM PDT Station ID: [id number]
[2020-11-13 19:01] VITALS: BP 144/85
== END 2020-11-13 19:07 | disposition home or self-care (01) ==
LOC: ED 16:00
DX: K04.7 Periapical abscess without sinus (principal); F17.200 Nicotine dependence, unspecified, uncomplicated
CPT/HCPCS: 36415; 64400; 70487; 80048; 85025; 96372; 96374; 99284; Q9967

== ENCOUNTER 2020-11-24 10:00 | Emergency (ER) | payer MEDICAID ==
[2020-11-24 10:13] VITALS: BP 149/91
[2020-11-24] MEDS ORDERED: BUPIVACAINE 0.5% PF 10 ML VIAL SUBQ STA (10:38)
--- NOTE | 2020-11-24 11:30 | ED Physician Documentation ---
PD HPI HEENT - Stated complaint Stated Complaint: FACE PX - Chief complaint Chief Complaint: Heent - History obtained from History obtained from: Patient - History of Present Illness Timing - onset: How many days ago (5) Timing - duration: Days (5) Timing - details: Gradual onset, Still present Location: Tooth Improves: Medication Worsens: Everything Similar symptoms before: Diagnosis (bad teeth) Recently seen: Emergency Dept - Additional information Additional information: 45-year-old male has had a dental extraction done several weeks ago with [facility] and he has had an increase in his pain again. He has had swelling to his face he has had a dental block done by Dr. Underwood last week that seemed to help quite a bit and he is back here again with similar compla ints. He does have clindamycin at home that he is taking. Review of Systems Constitutional: denies: Fever Eyes: denies: Decreased vision Ears: denies: Ear pain Nose: denies: Rhinorrhea / runny nose, Congestion Throat: reports: Dental pain / toothache Respiratory: reports: Cough GI: denies: Vomiting PD PAST MEDICAL HISTORY - Past Medical History Cardiovascular: Hypertension, High cholesterol, Coronary artery disease, [place], [place] Respiratory: Asthma, Sleep apnea, CPAP use Neuro: TIA, Migraines, Peripheral neuropathy Endocrine/Autoimmune: Type 2 diabetes GI: GERD, Ulcers, Other : Kidney stones, Other HEENT: Chronic vision loss Psych: None Musculoskeletal: Chronic back pain Derm: None - Past Surgical History 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 Cardiovascular: Cardiac catheterization, Angioplasty HEENT: Other - Present Medications Home Medications: Ambulatory Orders Medication Instructions Recorded Confirmed Aspirin 325 mg PO DAILY 05/13/19 11/24/20 Fluticasone [Flonase] 1 sprays GLENYS BID 05/13/19 11/24/20 Ipratropium [place] 1 spray NS TID 05/13/19 11/24/20 Metformin HCl 500 mg PO DAILY 05/13/19 11/24/20 Metoprolol Succinate 50 mg PO BID 05/13/19 11/24/20 Nitroglycerin 0.4 mg SL PRN PRN 05/13/19 11/24/20 Ipratropium/Albuterol [Duoneb] 3 ml INH Q6H PRN 04/26/20 11/24/20 Omeprazole 20 mg PO BID 04/26/20 11/24/20 Oxymetazoline HCl [Afrin] 1 spray NS PRN PRN 04/26/20 11/24/20 Albuterol Sulf [Ventolin Hfa 1 - 2 puffs IH Q4HR PRN 08/15/20 11/24/20 Inhaler] Fluticasone Propion/Salmeterol 1 puffs IH DAILY 08/15/20 11/24/20 [Fluticasone-Salmeterol 250-50] Acetaminophen [Tylenol] 650 mg PO Q6H PRN 11/13/20 11/24/20 Chlorhexidine Gluconate [Peridex] 15 ml MM BID #1 bottle 11/13/20 11/24/20 Ibuprofen [Motrin] 1 tablet PO Q8H PRN 11/13/20 11/24/20 Oxycodone HCl/Acetaminophen 1 - 2 each PO Q6H PRN #14 tablet 11/24/20 [Percocet 5-325 mg Tablet] clindamycin HCL [Clindamycin HCl] 300 mg PO Q6H #40 cap 11/24/20 - Allergies Allergies/Adverse Reactions: Allergies Allergy/AdvReac Type Severity Reaction Status Date / Time Sulfa (Sulfonamide Allergy Anaphylaxis Verified 11/24/20 10:08 Antibiotics) - Social History Does the pt smoke?: Yes Smoking Status: Current every day smoker Does the pt drink ETOH?: Yes Does the pt have substance abuse?: No - Immunizations Immunizations are current?: Yes - POLST Patient has POLST: No PD ED PE NORMAL - Vitals Vital signs reviewed: Yes (Hypertensive) - General General: Alert and oriented X 3, No acute distress, Well developed/nourished - HEENT HEENT: Atraumatic, PERRL, EOMI, Other (Multiple teeth broken off at the root and area of erythema tenderness and bogginess over the right incisor.) - Neck Neck: Supple, no meningeal sign, No bony TTP - Respiratory Respiratory: No respiratory distress - Derm Derm: Normal color, Warm and dry, No rash - Extremities Extremities: No deformity, No edema - Neuro Neuro: Alert and oriented X 3, digital recruiter 2-12 intact, No motor deficit, No sensory deficit, Normal speech Eye Opening: Spontaneous Motor: Obeys Commands Verbal: Oriented GCS Score: 15 - Psych Psych: Normal mood, Normal affect Results - Vitals Vitals: Vital Signs - 24 hr 11/24/20 10:10 Temperature 37.1 C Heart Rate 91 Respiratory 18 Rate Blood Pressure 149/91 H O2 Saturation 98 Oxygen O2 Source Room air Procedures - Regional nerve block Nerve block site: Buccal Right / left: Right Nerve block anesthesia: Marcaine 0.5% Nerve block aftercare: Moderate Anesthesia, Patient tolerated well, No comp lications PD MEDICAL DECISION MAKING - ED course Complexity details: considered differential, d/w patient ED course: 45-year-old male with increased pain has not slept in 2 days asks for a dental block this is provided has some improvement with this. We will place him back onto some pain medication he is currently on clindamycin. Departure - Departure Disposition: 01 Home, Self Care Clinical Impression: Pain, dental Condition: Stable Instructions: ED Tooth Pain Follow-Up: Kane Ceja MD [Primary Care Provider] - Prescriptions: clindamycin HCL [Clindamycin HCl] 300 mg PO Q6H #40 cap Oxycodone HCl/Acetaminophen [Percocet 5-325 mg Tablet] 1 - 2 each PO Q6H PRN #14 tablet PRN Reason: pain
== END 2020-11-24 11:41 | disposition home or self-care (01) ==
LOC: ED 10:00
DX: K08.89 Other specified disorders of teeth and supporting structures (principal); S02.5XXA Fracture of tooth (traumatic), initial encounter for closed fracture; X58.XXXA Exposure to other specified factors, initial encounter; I10 Essential (primary) hypertension; E11.42 Type 2 diabetes mellitus with diabetic polyneuropathy; Z79.84 Long term (current) use of oral hypoglycemic drugs; F17.200 Nicotine dependence, unspecified, uncomplicated; Z79.82 Long term (current) use of aspirin
CPT/HCPCS: 64400

== ENCOUNTER 2020-12-02 18:29 | Emergency (ER) | payer MEDICAID ==
[2020-12-02 18:46] VITALS: BP 142/81
[2020-12-02] MEDS ORDERED: oxyCODONE/ACET 5/325 Prepack 4 PO STA (19:02)
[2020-12-02] MEDS ORDERED: CLINDAMYCIN 150 MG CAPSULE PO STA (19:02)
--- NOTE | 2020-12-02 19:04 | ED Physician Documentation ---
History of Present Illness - Stated complaint Stated Complaint: MOUTH PX - Chief complaint Chief Complaint: Heent - History obtained from History obtained from: Patient (45-year-old gentleman has been having ongoing issues with dental pain. Was seen in the [facility] had a surgery done but it was per his report incomplete and he was still in a lot of pain. Now with facial swelling and increased pain and low-grade fevers at home.) Review of Systems Ears: denies: Loss of hearing, Ear pain Nose: denies: Rhinorrhea / runny nose Throat: denies: Sore throat Cardiac: denies: Chest pain / pressure, Palpitations PD PAST MEDICAL HISTORY - Past Medical History Cardiovascular: Hypertension, High cholesterol, Coronary artery disease, [place], [place] Respiratory: Asthma, Sleep apnea, CPAP use Neuro: TIA, Migraines, Peripheral neuropathy Endocrine/Autoimmune: Type 2 diabetes GI: GERD, Ulcers, Other : Kidney stones, Other HEENT: Chronic vision loss Psych: None Musculoskeletal: Chronic back pain Derm: None - Past Surgical History 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 Cardiovascular: Cardiac catheterization, Angioplasty HEENT: Other - Present Medications Home Medications: Ambulatory Orders Medication Instructions Recorded Confirmed Aspirin 325 mg PO DAILY 05/13/19 11/24/20 Fluticasone [Flonase] 1 sprays GLENYS BID 05/13/19 11/24/20 Ipratropium [place] 1 spray NS TID 05/13/19 11/24/20 Metformin HCl 500 mg PO DAILY 05/13/19 11/24/20 Metoprolol Succinate 50 mg PO BID 05/13/19 11/24/20 Nitroglycerin 0.4 mg SL PRN PRN 05/13/19 11/24/20 Ipratropium/Albuterol [Duoneb] 3 ml INH Q6H PRN 04/26/20 11/24/20 Omeprazole 20 mg PO BID 04/26/20 11/24/20 Oxymetazoline HCl [Afrin] 1 spray NS PRN PRN 04/26/20 11/24/20 Albuterol Sulf [Ventolin Hfa 1 - 2 puffs IH Q4HR PRN 08/15/20 11/24/20 Inhaler] Fluticasone Propion/Salmeterol 1 puffs IH DAILY 08/15/20 11/24/20 [Fluticasone-Salmeterol 250-50] Acetaminophen [Tylenol] 650 mg PO Q6H PRN 11/13/20 11/24/20 Chlorhexidine Gluconate [Peridex] 15 ml MM BID #1 bottle 11/13/20 11/24/20 Ibuprofen [Motrin] 1 tablet PO Q8H PRN 11/13/20 11/24/20 Oxycodone HCl/Acetaminophen 1 - 2 each PO Q6H PRN #14 tablet 11/24/20 [Percocet 5-325 mg Tablet] clindamycin HCL [Clindamycin HCl] 300 mg PO Q6H #40 cap 11/24/20 Oxycodone HCl/Acetaminophen 1 - 2 each PO Q6H PRN #14 tablet 12/02/20 [Percocet 5-325 mg Tablet] clindamycin HCL [Cleocin HCl] 300 mg PO QID #28 cap 12/02/20 - Allergies Allergies/Adverse Reactions: Allergies Allergy/AdvReac Type Severity Reaction Status Date / Time Sulfa (Sulfonamide Allergy Anaphylaxis Verified 12/02/20 18:46 Antibiotics) - Social History Does the pt smoke?: Yes Smoking Status: Current every day smoker Does the pt drink ETOH?: Yes Does the pt have substance abuse?: No - Immunizations Immunizations are current?: Yes - POLST Patient has POLST: No PD ED PE NORMAL - Vitals Vital signs reviewed: Yes - General General: Alert and oriented X 3, No acute distress - HEENT HEENT: Other (Really poor dentition, there is a remaining molar on the right maxilla that is tender but no facial swelling.) - Neuro Neuro: Alert and oriented X 3, Normal speech Results - Vitals Vitals: Vital Signs - 24 hr 12/02/20 18:41 Temperature 37.5 C Heart Rate 85 Respiratory 16 Rate Blood Pressure 142/81 H O2 Saturation 97 Oxygen O2 Source Room air Procedures - Regional nerve block Nerve block site: Infraorbital Right / left: Right Nerve block anesthesia: Other (0.5% ropivacaine) Nerve block aftercare: Excellent anesthesia PD MEDICAL DECISION MAKING - ED course ED course: Discussed with him this is his sixth visit since August where he has received narcotics from this emergency department and we would not be able to continue to give him narcotics without new or objective injury or painful medical condition. Departure - Departure Disposition: 01 Home, Self Care Clinical Impression: Pain, dental Condition: Good Record reviewed to determine appropriate education?: Yes Instructions: ED Tooth Pain Prescriptions: clindamycin HCL [Cleocin HCl] 300 mg PO QID #28 cap Oxycodone HCl/Acetaminophen [Percocet 5-325 mg Tablet] 1 - 2 each PO Q6H PRN #14 tablet PRN Reason: pain Comments: Prescription sent electronically to [facility] in [place]. I am prescribing a short course of narcotic pain medication for you. These are potentially dangerous and addictive medications that should be used carefully. These medications may constipate you. Take an azcw-hgl-awgijug stool softener (docusate) twice daily with plenty of water while taking these medications. If you go 24 hours without a bowel movement, take ihzl-hyw-jdtvdae miralax, per package instructions. Do not drink or drive while taking these medications. If you received narcotic or sedating medications while in the emergency departm ent, do not drive for 24 hours. Store this medication in a safe, secure place and out of reach of children. It is a violation of federal law to give or sell this medication to another person or to use in a manner other than prescribed. The ED will not refill narcotic prescriptions, including prescriptions lost or stolen. To dispose of unwanted medications: 1. [facility] at [address] in [place] has a medication drop box. They accept prescription medications (in pill form) Friday through Friday 9:00 a.m. to 5:00 p.m. 2. The [facility] Department accepts prescription medications (in pill form only) for disposal year round. Call for more information. 3. Contact the [facility] for the next [facility] sponsored prescription drug collection event. , [phone], or [phone]; Note that many narcotic pain relievers also contain Tylenol/acetaminophen. Please ensure that your total dose of acetaminophen from all sources does not exceed 3 g (3000 mg) per day. The policy of this emergency department is to not give more than 3 prescriptions for narcotics or other controlled substances in any 1 year. You have already surpassed this benchmark and we cannot prescribe narcotics for you. I encourage you to follow up with your primary care physician or to establish care with a primary care physician for ongoing pain management. You are always welcome to seek emergency care here for this or new issues but there will likely be limitations in the prescription of narcotic pain medication.
== END 2020-12-02 19:24 | disposition home or self-care (01) ==
LOC: ED 18:29
DX: K08.89 Other specified disorders of teeth and supporting structures (principal); I10 Essential (primary) hypertension; E11.42 Type 2 diabetes mellitus with diabetic polyneuropathy; Z79.84 Long term (current) use of oral hypoglycemic drugs; Z79.82 Long term (current) use of aspirin; F17.200 Nicotine dependence, unspecified, uncomplicated
CPT/HCPCS: 64400; 99282; 99283; A9270

== ENCOUNTER 2021-04-15 09:16 | Emergency (ER) | payer MEDICAID ==
[2021-04-15 09:32] VITALS: BP 162/87
--- NOTE | 2021-04-15 09:38 | ED Physician Documentation ---
PD HPI FOCAL NEURO - Stated complaint Stated Complaint: LT ARM PX/TINGLING - Chief complaint Chief Complaint: Neuro - History obtained from History obtained from: Patient - Additional information Additional information: For the last 2 days he has had left hand swelling, difficulty getting his ring on and off even though it is usually loose. Its associated with some left forearm pain and slight numbness of all the fingers of the left hand. There is no injury or change in activity. 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 Cardiovascular: Cardiac catheterization, Angioplasty HEENT: Other - Present Medications Home Medications: Ambulatory Orders Medication Instructions Recorded Confirmed Aspirin 325 mg PO DAILY 05/13/19 11/24/20 Fluticasone [Flonase] 1 sprays GLENYS BID 05/13/19 11/24/20 Ipratropium [place] 1 spray NS TID 05/13/19 11/24/20 Metformin HCl 500 mg PO DAILY 05/13/19 11/24/20 Metoprolol Succinate 50 mg PO BID 05/13/19 11/24/20 Nitroglycerin 0.4 mg SL PRN PRN 05/13/19 11/24/20 Ipratropium/Albuterol [Duoneb] 3 ml INH Q6H PRN 04/26/20 11/24/20 Omeprazole 20 mg PO BID 04/26/20 11/24/20 Oxymetazoline HCl [Afrin] 1 spray NS PRN PRN 04/26/20 11/24/20 Albuterol Sulf [Ventolin Hfa 1 - 2 puffs IH Q4HR PRN 08/15/20 11/24/20 Inhaler] Fluticasone Propion/Salmeterol 1 puffs IH DAILY 08/15/20 11/24/20 [Fluticasone-Salmeterol 250-50] Acetaminophen [Tylenol] 650 mg PO Q6H PRN 11/13/20 11/24/20 Chlorhexidine Gluconate [Peridex] 15 ml MM BID #1 bottle 11/13/20 11/24/20 Ibuprofen [Motrin] 1 tablet PO Q8H PRN 11/13/20 11/24/20 Oxycodone HCl/Acetaminophen 1 - 2 each PO Q6H PRN #14 tablet 11/24/20 [Percocet 5-325 mg Tablet] clindamycin HCL [Clindamycin HCl] 300 mg PO Q6H #40 cap 11/24/20 Oxycodone HCl/Acetaminophen 1 - 2 each PO Q6H PRN #14 tablet 12/02/20 [Percocet 5-325 mg Tablet] clindamycin HCL [Cleocin HCl] 300 mg PO QID #28 cap 12/02/20 - Allergies Allergies/Adverse Reactions: Allergies Allergy/AdvReac Type Severity Reaction Status Date / Time Sulfa (Sulfonamide Allergy Anaphylaxis Verified 04/15/21 09:27 Antibiotics) - Social History Does the pt smoke?: Yes Smoking Status: Current every day smoker Does the pt drink ETOH?: Yes Does the pt have substance abuse?: No - Immunizations Immunizations are current?: Yes - POLST Patient has POLST: No PD ED PE NORMAL - Vitals Vital signs reviewed: Yes - General General: Alert and oriented X 3, No acute distress - Neck Neck: Supple, no meningeal sign, No bony TTP - Derm Derm: Normal color, Warm and dry - Extremities Extremities: Other (see mdm) - Neuro Neuro: Alert and oriented X 3, Normal speech Results - Vitals Vitals: Vital Signs - 24 hr 04/15/21 09:27 Temperature 37.0 C Heart Rate 97 Respiratory 18 Rate Blood Pressure 162/87 H O2 Saturation 95 Oxygen O2 Source Room air - EKG (time done) 0925 Rate: Rate (enter#) (83) Rhythm: NSR [place]: Normal Intervals: Normal NE QRS: Normal Ischemia: Normal ST segments Computer interpretation: Agree with computer PD MEDICAL DECISION MAKING - ED course ED course: Capillary refill, radial and ulnar pulses are equal in both hands. Slight numbness throughout the left hand not following a dermatomal or peripheral nerve pattern. Builder Beam strength is normal. Forearm is nontender. Focused ultrasound of the left arm shows compressible veins throughout the forearm and normal arterial flow. No neck tenderness. Differential diagnosis includes cardiac etiology but given the lack of primary chest pain, shortness of breath and a normal EKG this is exceedingly unlikely with these atypical symptoms. Consideration given to stroke/TIA, but the focality of his findings and the forearm pain would be atypical for that. Does not seem to be a vascular cause on exam. Remaining differentials include radiculopathy, less likely since he has no increase in neck pain but he does have chronic neck pain versus focal unexplained swelling causing neuropraxia which I think is more likely. Departure - Departure Disposition: 01 Home, Self Care Clinical Impression: Neuropraxia of left upper extremity Qualifiers: Encounter type: initial encounter Qualified Code(s): S44.92XA - Injury of unspecified nerve at shoulder and upper arm level, left arm, initial encounter Condition: Good Record reviewed to determine appropriate education?: Yes Instructions: ED Neuropathy Peripheral Comments: As discussed, I do not think this is stroke or cardiac cause. Remaining possibilities include a neuropraxia due to swelling which I think is more likely but pinched nerve in your neck (cervical radiculopathy is also possibility. Call your doctor to arrange a follow-up appointment, make the next available appointment. In the interim, return anytime if worse or if new symptoms develop. Forms: Activity restrictions
== END 2021-04-15 09:48 | disposition home or self-care (01) ==
LOC: ED 09:16
DX: S54.92XA Injury of unspecified nerve at forearm level, left arm, initial encounter (principal); X58.XXXA Exposure to other specified factors, initial encounter; M79.89 Other specified soft tissue disorders; E11.42 Type 2 diabetes mellitus with diabetic polyneuropathy; Z79.84 Long term (current) use of oral hypoglycemic drugs; I10 Essential (primary) hypertension; F17.200 Nicotine dependence, unspecified, uncomplicated; Z79.82 Long term (current) use of aspirin
CPT/HCPCS: 93005; 99283

== ENCOUNTER 2021-08-22 08:00 | Outpatient (CLI) | payer MEDICAID ==
[2021-08-22 11:39] LABS: BASOPHILS % (AUTO) 0.4 %; EOSINOPHILS # (AUTO) 0.3 10^3/uL (0.0-0.7); EOSINOPHILS % (AUTO) 5.9 %; HCT - HEMATOCRIT 39.8 % (42.0-52.0); HGB - HEMOGLOBIN 13.5 g/dL (14.0-18.0); LYMPHOCYTES # (AUTO) 1.6 10^3/uL (1.5-3.5); LYMPHOCYTES % (AUTO) 29.1 %; MEAN CORPUSCULAR HEMOGLOBIN 29.2 pg (27.0-31.0); MEAN CORPUSCULAR HGB CONC 33.9 g/dL (32.0-36.0); MEAN CORPUSCULAR VOLUME 86.1 fL (80.0-94.0); MEAN PLATELET VOLUME 11.6 fL (7.4-11.4); MONOCYTES # (AUTO) 0.5 10^3/uL (0.0-1.0); MONOCYTES % (AUTO) 8.3 %; NEUTROPHILS % (AUTO) 56.1 %; PLT - PLATELET COUNT 144 10^3/uL (130-450); RED BLOOD COUNT 4.62 10^6/uL (4.70-6.10); WHITE BLOOD COUNT 5.4 x10^3/uL (4.8-10.8)
[2021-08-22 12:47] LABS: ALBUMIN 4.1 g/dL (3.2-5.5); ALBUMIN/GLOBULIN RATIO 1.4 (1.0-2.2); BILIRUBIN,TOTAL 0.7 mg/dL (0.2-1.0); CALCIUM 9.2 mg/dL (8.5-10.3); CREATININE 0.7 mg/dL (0.6-1.2)
== END 2021-08-22 23:59 | disposition home or self-care (01) ==
LOC: LAB.N 08:00
PROVIDERS: ATTEND Nurse Practitioner
DX: U07.1 COVID-19 (principal)
CPT/HCPCS: 36415; 80053; 83880; 85025

== ENCOUNTER 2021-08-22 10:05 | Emergency (ER) | payer MEDICAID ==
[2021-08-22 10:30] VITALS: BP 145/90
--- NOTE | 2021-08-22 12:56 | ED Physician Documentation ---
PD HPI URI - Stated complaint Stated Complaint: C+ COUGH/CHILL/FEVER - Chief complaint Chief Complaint: Resp - History obtained from History obtained from: Patient - History of Present Illness Timing - onset: How many days ago (2-3) Timing duration: Days (2-3 days of aches, chills, exac of asthma with increased wheeze and cough over baseline. home COVID test yesterday 2 of them were positive. Called nurse line and advised to come to ER. He tried Walk In first and was told he needed to delay antivirals until in house PCR test done to validate COVID.) Timing details: Abrupt onset, Still present Associated symptoms: Fever, Chills, Rhinorrhea, Dry cough, Dyspnea. No: Nasal congestion, Hemoptysis, Bilateral edema Contributing factors: COPD / asthma. No: Sick contact, Travel, Unimmunized Improves by: MDI/nebulizer Worsened by: Activity Similar symptoms before: Diagnosis (will get exac of asthma with URIs/allergies.) Recently seen: Clinic (Walk In prior to here but did not get Rx for antivirals.) Review of Systems Constitutional: reports: Fever, Chills, Myalgias, Other (right facial pain upper teeth chronically.) Nose: reports: Congestion. denies: Rhinorrhea / runny nose Throat: denies: Sore throat Cardiac: denies: Chest pain / pressure Respiratory: reports: Dyspnea, Cough, Wheezing GI: reports: Nausea. denies: Vomiting, Diarrhea Skin: denies: Rash Neurologic: reports: Generalized weakness. 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 Cardiovascular: Cardiac catheterization, Angioplasty HEENT: Other - Present Medications Home Medications: Ambulatory Orders Medication Instructions Recorded Confirmed Aspirin 325 mg PO DAILY 05/13/19 11/24/20 Fluticasone [Flonase] 1 sprays GLENYS BID 05/13/19 11/24/20 Ipratropium [place] 1 spray NS TID 05/13/19 11/24/20 Metformin HCl 500 mg PO DAILY 05/13/19 11/24/20 Metoprolol Succinate 50 mg PO BID 05/13/19 11/24/20 Nitroglycerin 0.4 mg SL PRN PRN 05/13/19 11/24/20 Ipratropium/Albuterol [Duoneb] 3 ml INH Q6H PRN 04/26/20 11/24/20 Omeprazole 20 mg PO BID 04/26/20 11/24/20 Oxymetazoline HCl [Afrin] 1 spray NS PRN PRN 04/26/20 11/24/20 Albuterol Sulf [Ventolin Hfa 1 - 2 puffs IH Q4HR PRN 08/15/20 11/24/20 Inhaler] Fluticasone Propion/Salmeterol 1 puffs IH DAILY 08/15/20 11/24/20 [Fluticasone-Salmeterol 250-50] Acetaminophen [Tylenol] 650 mg PO Q6H PRN 11/13/20 11/24/20 Chlorhexidine Gluconate [Peridex] 15 ml MM BID #1 bottle 11/13/20 11/24/20 Ibuprofen [Motrin] 1 tablet PO Q8H PRN 11/13/20 11/24/20 Oxycodone HCl/Acetaminophen 1 - 2 each PO Q6H PRN #14 tablet 11/24/20 [Percocet 5-325 mg Tablet] clindamycin HCL [Clindamycin HCl] 300 mg PO Q6H #40 cap 11/24/20 Oxycodone HCl/Acetaminophen 1 - 2 each PO Q6H PRN #14 tablet 12/02/20 [Percocet 5-325 mg Tablet] clindamycin HCL [Cleocin HCl] 300 mg PO QID #28 cap 12/02/20 Benzonatate [Tessalon] 100 mg PO TID PRN #20 cap 08/22/21 dexAMETHasone [Decadron] 4 mg PO DAILY #7 tablet 08/22/21 - Allergies Allergies/Adverse Reactions: Allergies Allergy/AdvReac Type Severity Reaction Status Date / Time Sulfa (Sulfonamide Allergy Anaphylaxis Verified 08/22/21 10:30 Antibiotics) - Social History Does the pt smoke?: Yes Smoking Status: Current every day smoker Does the pt drink ETOH?: Yes Does the pt have substance abuse?: No - Immunizations Immunizations are current?: Yes - POLST Patient has POLST: No PD ED PE NORMAL - Vitals Vital signs reviewed: Yes - General General: Alert and oriented X 3, No acute distress, Well developed/nourished - HEENT HEENT: Moist mucous membranes, Pharynx benign - Neck Neck: Supple, no meningeal sign, No adenopathy - Cardiac Cardiac: RRR, No murmur - Respiratory Respiratory: No respiratory distress. No: Clear bilaterally (exp wheezing. no coarse sounds. ) - Abdomen Abdomen: Soft, Non tender - Derm Derm: Normal color, Warm and dry - Extremities Extremities: Normal ROM s pain, No edema, No calf tenderness / cord - Neuro Neuro: Alert and oriented X 3, No motor deficit, Normal speech Results - Vitals Vitals: Vital Signs - 24 hr 08/22/21 10:25 Temperature 36.9 C Heart Rate 78 Respiratory 20 Rate Blood Pressure 145/90 H O2 Saturation 99 Oxygen O2 Source Room air PD MEDICAL DECISION MAKING - ED course Complexity details: reviewed old records (labs from Walk In today are resulted. ), considered differential (covid and exac of asthma just the past 2-3 days. no history of renal disease. Seen in walk in and had labs drawn. Not sure why not antivirals Rx there nor steroids for exac asthma.), d/w patient Departure - Departure Disposition: 01 Home, Self Care Clinical Impression: COVID-19 Exacerbation of asthma Qualifiers: Asthma severity: moderate Asthma persistence: persistent Qualified Code(s): J45.41 - Moderate persistent asthma with (acute) exacerbation Condition: Stable Record reviewed to determine appropriate education?: Yes Prescriptions: dexAMETHasone [Decadron] 4 mg PO DAILY #7 tablet Benzonatate [Tessalon] 100 mg PO TID PRN #20 cap PRN Reason: Cough Comments: Continue with usual medications and inhalers. Add the pack Slo-Bid antiviral medicines over the next 5 days as directed in the packet given. We would also add a steroid dosing for orally for 7 days to decrease the asthma exacerbation. Add Tessalon/benzonatate if needed for cough. Stay well-hydrated. Return to the ER or walk-in clinic if worsening symptoms overall. I transmitted your prescriptions to [facility] pharmacy in [place]. Forms: Activity restrictions Discharge Date/Time: 08/22/21 14:14
[2021-08-22] MEDS ORDERED: KETOROLAC 30 MG/ML VIAL IM STA (13:22)
[2021-08-22] MEDS ORDERED: DEXAMETHASONE 10 MG/ML VIAL PO STA (13:22)
[2021-08-22] MEDS ORDERED: ACETAMINOPHEN 325 MG TABLET PO STA (13:22)
[2021-08-22] MEDS ORDERED: CHERRY SYRUP 10 ML UDC PO ONE (13:22)
[2021-08-22] MEDS ORDERED: NIRMATRELVIR/RITONAVIR PREPACK PO STA (13:22)
[2021-08-22] MEDS ORDERED: BENZONATATE 100 MG CAPSULE PO STA (13:49)
== END 2021-08-22 14:14 | disposition home or self-care (01) ==
LOC: ED 10:05
DX: U07.1 COVID-19 (principal); J45.41 Moderate persistent asthma with (acute) exacerbation; F17.200 Nicotine dependence, unspecified, uncomplicated
CPT/HCPCS: 96372; 99283; 99284; A9270; J3490

== ENCOUNTER 2022-09-07 15:32 | Emergency (ER) | payer MEDICAID ==
[2022-09-07 15:40] VITALS: BP 114/84
[2022-09-07] MEDS ORDERED: cefTRIAXone 1 GM VIAL IM STA (16:15)
[2022-09-07] MEDS ORDERED: HYDROmorphone 1 MG/ML CARPUJECT IM STA (16:15)
[2022-09-07] MEDS ORDERED: LIDOCAINE 1% 2 ML VIAL MC ONE (16:15)
--- NOTE | 2022-09-07 16:19 | ED Physician Documentation ---
History of Present Illness - Stated complaint Stated Complaint: FACIAL PX - Chief complaint Chief Complaint: Heent - Additonal information Additional information: 46-year-old male presents to the emergency department for evaluation of worsen ing pain in his right upper mouth as well as pain and spasm in his face extending to the trapezius. This gentleman has chronically poor dentition and had multiple teeth extracted in the right upper jaw at [facility] on Friday. He does have a chronic pain disorder for which she is managed by the [facility]. He typically takes his Percocet 10 mg 3 times daily. The dental office prescribed 12 additional Percocet tablets for management of the pain. Since the surgery he has found that he has some trismus in his right upper jaw. He has had pain extending to the cheek. He has had some muffled hearing in the right ear as well as reporting sinus pressure. States that he blew his nose and there was blood in it. He called the dental clinic at [facility] and was told to come to the ER. He is unable to get in touch with his pain management doctors on the weekend or his primary care provider. He has no fever here. No tachycardia or hypotension. He appears uncomfortable in pain and anxious Review of Systems Constitutional: denies: Fever Eyes: reports: Reviewed and negative Throat: reports: Dental pain / toothache, Oral lesions / sores. 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 Cardiovascular: Cardiac catheterization, Angioplasty HEENT: Other - Present Medications Home Medications: Ambulatory Orders Medication Instructions Recorded Confirmed Aspirin 325 mg PO DAILY 05/13/19 09/07/22 Fluticasone [Flonase] 1 sprays GLENYS BID 05/13/19 09/07/22 Ipratropium [place] 1 spray NS TID 05/13/19 09/07/22 Metformin HCl 500 mg PO DAILY 05/13/19 09/07/22 Metoprolol Succinate 50 mg PO BID 05/13/19 09/07/22 Nitroglycerin 0.4 mg SL PRN PRN 05/13/19 09/07/22 Ipratropium/Albuterol [Duoneb] 3 ml INH Q6H PRN 04/26/20 09/07/22 Albuterol Sulf [Ventolin Hfa 1 - 2 puffs IH Q4HR PRN 08/15/20 09/07/22 Inhaler] Fluticasone Propion/Salmeterol 1 puffs IH DAILY 08/15/20 09/07/22 [Fluticasone-Salmeterol 250-50] Ibuprofen [Motrin] 1 tablet PO Q8H PRN 11/13/20 09/07/22 Amox/Clav 875/125 [Augmentin] 1 each PO Q12H #20 tablet 09/07/22 Losartan [Cozaar] 50 mg PO DAILY 09/07/22 09/07/22 Oxycodone HCl/Acetaminophen 1 each PO Q4HR PRN 09/07/22 09/07/22 [Percocet 10-325 mg Tablet] Rosuvastatin Calcium [Crestor] 40 mg PO HS 09/07/22 09/07/22 oxyCODONE [Roxicodone] 5 mg PO TID PRN #15 tablet 09/07/22 - Allergies Allergies/Adverse Reactions: Allergies Allergy/AdvReac Type Severity Reaction Status Date / Time Sulfa (Sulfonamide Allergy Anaphylaxis Verified 09/07/22 15:36 Antibiotics) - Social History Does the pt smoke?: Yes Smoking Status: Current every day smoker Does the pt drink ETOH?: Yes Does the pt have substance abuse?: No - Immunizations Immunizations are current?: Yes - POLST Patient has POLST: No PD ED PE NORMAL - General General: Alert and oriented X 3. No: No acute distress (Anxious painful appearing.) - HEENT HEENT: Other (Right upper jaw and mouth is mildly erythematous with mild to moderate trismus present. There are is Sig significant tenderness with palpation of the gumline. No fullness or swelling of the lower jaw, mandible, or neck. Patient has normal phonation, normal swallow. Tolerating oral secretions.) - Neck Neck: Supple, no meningeal sign - Cardiac Cardiac: RRR, No murmur - Respiratory Respiratory: No respiratory distress, Clear bilaterally - Abdomen Abdomen: Normal bowel sounds, Soft Results - Vitals Vitals: Vital Signs - 24 hr 09/07/22 15:36 Temperature 36.8 C Heart Rate 87 Respiratory 18 Rate Blood Pressure 114/84 H O2 Saturation 97 Oxygen O2 Source Room air PD Medical Decision Making - ED course Complexity details: reviewed results, re-evaluated patient, considered differential, d/w patient ED course: 46-year-old male presented urgency department for evaluation of worsening pain in the right upper mouth and jaw. He had multiple teeth extracted at [facility] on Friday. He does have a longstanding pain contract with [facility]. The dental clinic prescribed an additional 12 oxycodone but over the course of time he is found the pain is worsening and not controlled with oxycodone. He has reported some mild trismus but no dysphonia or difficulty tolerating oral secretions. On exam he is missing most of the teeth in the right upper jaw. There was some mild trismus. However there was no fullness of the lower jaw under the tongue or around the neck. Clinically it does appear as though he is developing a dental infection in this region. Given the mild trismus he was given an injection of ceftriaxone 1 g here in the emergency department and will be disch arged with prescription of Augmentin twice daily for the next 10 days. I did administer the patient 1.5 mg of Dilaudid IM here in the emergency department as well as 30 mg of Toradol. On reevaluation his pain has modestly improved I do feel that it would be appropriate to prescribe some additional analgesia in the setting of worsening infection therefore some oxycodone will also be sent to the patient's preferred pharmacy. I discussed with the patient that he will need to follow closely with the dental clinic at [facility]. We discussed the usual emergent return precautions for worsening trismus, dysphonia or difficulty tolerating oral secretions. He was also advised to discuss this ED visit closely with the pain clinic given that he is under pain contract. I am prescribing a short course of short-acting opioid pain medication for this patient. 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 I have discussed that the opioids are for short term therapy only, and will not be refilled from the ED. Departure - Departure Disposition: Home, Self Care Clinical Impression: Dental infection Condition: Stable Record reviewed to determine appropriate education?: Yes Prescriptions: Amox/Clav 875/125 [Augmentin] 1 each PO Q12H #20 tablet oxyCODONE [Roxicodone] 5 mg PO TID PRN #15 tablet PRN Reason: Pain Comments: Arjun baldwin are seen today in the emergency department because you are having worsening pain in your right upper jaw at the site where you had many teeth extracted on Friday. I am concerned that there is infection in this area. To manage this I am starting you on an antibiotic called Augmentin. You will take it twice daily for the next 10 days. I am also prescribing a limited amount of oxycodone. You can take this 3 times a day as needed only for pain. Continue with your mouth rinses. I recommend Tylenol 500 mg 3 times a day alternating with ibuprofen 600 mg taken with food also 3 times a day for general control of this pain. You can continue cool ice compresses if you find that those are helpful. It is very important that you discuss this ED visit with the dental clinic on Friday. They may elect to see you sooner. It is also important you discuss this ED visit with your pain clinic provider. I am prescribing a limited amount of oxycodone in addition to what your pain management providers prescribed. I think that this additional dosing is appropriate and you are seeking care for the appropriate reasons. If at any point you find that you are having worsening symptoms, or unable to tolerate your oral secretions, have a hoarse voice then you should return immediately to the ER for repeat evaluation
[2022-09-07] MEDS ORDERED: KETOROLAC 30 MG/ML VIAL IM STA (16:44)
== END 2022-09-07 17:44 | disposition home or self-care (01) ==
LOC: ED 15:32
DX: K04.7 Periapical abscess without sinus (principal); F17.200 Nicotine dependence, unspecified, uncomplicated
CPT/HCPCS: 96372; 99283; J1170

== ENCOUNTER 2023-02-21 11:40 | Outpatient (CLI) | payer MEDICAID ==
[2023-02-21 12:49] LABS: CREATININE 0.7 mg/dL (0.6-1.3)
--- NOTE | 2023-02-21 16:14 | CT Report ---
PROCEDURE: IVP INDICATIONS: BLADDER CA CONTRAST: Omni 300 140ml TECHNIQUE: After the administration of intravenous contrast, 5 mm thick sections acquired from the diaphragms to the symphysis. 5 mm thick coronal and sagittal reformats were acquired. For radiation dose reducti on, the following was used: automated exposure control, adjustment of mA and/or kV according to sophie ent size. COMPARISON: 12/23/2019. FINDINGS: Image quality: Good Lower chest: Unremarkable appearance of the lower lungs. No pleural effusions. No hiatal hernia. Norm al heart size. Solid organs: The liver appears unremarkable. Gallbladder is underdistended. No pathologic dilation o f the biliary system or pancreatic duct. No splenomegaly. No adrenal nodules. No renal mass requiring follow-up imaging. No hydronephrosis. No calcified renal stone. Vessels and lymph nodes: No abdominal aortic aneurysm or pathologic lymphadenopathy by size criteria. Main portal vein is patent. Bowel and peritoneum: No bowel obstruction. No pathologic ascites. There are colonic diverticula. Body wall: Tiny fat-containing umbilical hernia. Pelvis: No discrete bladder mass is identified. Prostate is not well assessed on CT. Bones: No acute or suspicious osseous finding. Possible bone island in the lumbar spine, slightly in creased measuring 8 mm, compared to 2020. IMPRESSION: No new or enlarging malignant disease identified on CT IVP. Bladder could be better evaluated cystosc opy if needed. Other findings as above. A sclerotic lesion at L3 is slightly larger than 2020 imaging, possibly a bone island that is slowly growing. Attention on follow-up given history of malignancy. Reviewed by: Ventura Montano MD on 02/21/2023 4:12 PM PST Approved by: Ventura Montano MD on 02/21/2023 4:12 PM PST Station ID: [id number]
[2023-02-21] MEDS ORDERED: iohexoL-300 100 ML VIAL IVP ONE (16:58)
== END 2023-02-21 11:41 | disposition home or self-care (01) ==
LOC: DI 11:40
PROVIDERS: ATTEND Urology
DX: C67.9 Malignant neoplasm of bladder, unspecified (principal); M89.9 Disorder of bone, unspecified
CPT/HCPCS: 36415; 74178; 82565; Q9967

== ENCOUNTER 2023-09-23 10:36 | Emergency (ER) | payer MEDICAID ==
[2023-09-23] MEDS: CLINDAMYCIN 150 MG CAPSULE PO ONE (12:09)
[2023-09-23] MEDS: KETOROLAC 30 MG/ML VIAL IM ONE (12:09)
[2023-09-23 13:31] VITALS: BP 122/65; O2SAT 97
== END 2023-09-23 13:30 | disposition home or self-care (01) ==
LOC: ED 10:36
DX: T63.301A Toxic effect of unspecified spider venom, accidental (unintentional), initial encounter (principal); R22.42 Localized swelling, mass and lump, left lower limb
CPT/HCPCS: 96374; 99283; A9270

== ENCOUNTER 2023-10-03 10:49 | Emergency (ER) | payer MEDICAID ==
[2023-10-03 11:15] VITALS: O2SAT 98
--- NOTE | 2023-10-03 11:23 | ED Physician Documentation ---
History of Present Illness - Stated complaint Stated Complaint: FACIAL NUMBNESS,CONFUSION - Chief complaint Chief Complaint: General - Additonal information Additional information: 47-year-old male with history of chronic pain, hypertension, hypercholesterolemia, coronary artery disease, TIA, UT, sleep apnea, type 2 diabetes, GERD, kidney stones presents emergency department for brief episode of left facial drooping that has now fully resolved with episode of disorientation. Patient says that he is working 3 jobs right now to try and pay all the bills having a hard time making ends meet so he says he has been up for the last 72 hours without any sleep. He said he attempted to take a nap last night went to bed around 11 PM slept for about 2 hours and awoke with left facial numbness and possible drooping although patient says he does not know if there was drooping he does feel like he was drooling a little bit more of the left corner of his mouth. No recent fevers or chills no recent falls patient says that he has had a TIA before, where it was significantly worse symptoms says that he is not feeling no symptoms right now he does take anticholesterol medication as well as aspirin daily has not missed any recent doses symptoms have now fully resolved patient says that someone from his work recommended he come into the emergency department for further evaluation. He does appear to be quite anxious and severe pressured speech hard to get complete history and difficult for patient to answer all questions as at times he can be tangential. PD PAST MEDICAL HISTORY - Past Medical History Past Medical History: Yes Cardiovascular: Hypertension, High cholesterol, Coronary artery disease, UT, Murmur Respiratory: Asthma, Sleep apnea, CPAP use Neuro: TIA, Migraines, Peripheral neuropathy Endocrine/Autoimmune: Type 2 diabetes GI: GERD, Ulcers, Other : Kidney stones, Other HEENT: Chronic vision loss Psych: None Musculoskeletal: Chronic back pain Derm: None - Past Surgical History Past Surgical History: Yes /MATCH MARKER: Other Cardiovascular: Cardiac catheterization, Angioplasty HEENT: Other - Present Medications Home Medications: Ambulatory Orders Medication Instructions Recorded Confirmed Aspirin 325 mg PO DAILY 05/13/19 09/07/22 Fluticasone [Flonase] 1 sprays GLENYS BID 05/13/19 09/07/22 Ipratropium [place] 1 spray NS TID 05/13/19 09/07/22 Metformin HCl 500 mg PO DAILY 05/13/19 09/07/22 Metoprolol Succinate 50 mg PO BID 05/13/19 09/07/22 Nitroglycerin 0.4 mg SL PRN PRN 05/13/19 09/07/22 Ipratropium/Albuterol [Duoneb] 3 ml INH Q6H PRN 04/26/20 09/07/22 Albuterol Sulf [Ventolin Hfa 1 - 2 puffs IH Q4HR PRN 08/15/20 09/07/22 Inhaler] Fluticasone Propion/Salmeterol 1 puffs IH DAILY 08/15/20 09/07/22 [Fluticasone-Salmeterol 250-50] Ibuprofen [Motrin] 1 tablet PO Q8H PRN 11/13/20 09/07/22 Amox/Clav 875/125 [Augmentin] 1 each PO Q12H #20 tablet 09/07/22 Losartan [Cozaar] 50 mg PO DAILY 09/07/22 09/07/22 Oxycodone HCl/Acetaminophen 1 each PO Q4HR PRN 09/07/22 09/07/22 [Percocet 10-325 mg Tablet] Rosuvastatin Calcium [Crestor] 40 mg PO HS 09/07/22 09/07/22 oxyCODONE [Roxicodone] 5 mg PO TID PRN #15 tablet 09/07/22 Chlorhexidine Gluconate [Peridex] 480 ml MM TID #480 ml 10/23/22 Chlorhexidine Gluconate [Peridex] 480 ml MM TID 30 Days #62174 ml 10/23/22 clindamycin HCL [Cleocin HCl] 300 mg PO QID #28 cap 10/23/22 - Allergies Allergies/Adverse Reactions: Allergies Allergy/AdvReac Type Severity Reaction Status Date / Time Sulfa (Sulfonamide Allergy Anaphylaxis Verified 10/03/23 11:08 Antibiotics) - Social History Does the pt smoke?: Yes Smoking Status: Current every day smoker Does the pt drink ETOH?: Yes Does the pt have substance abuse?: No - Immunizations Immunizations are current?: Yes - POLST Patient has POLST: No PD ED PE NORMAL - Vitals Vital signs reviewed: Yes - General General: Alert and oriented X 3, No acute distress, Well developed/nourished - HEENT HEENT: Atraumatic, PERRL, EOMI, Moist mucous membranes - Neck Neck: Supple, no meningeal sign, No JVD - Cardiac Cardiac: RRR - Respiratory Respiratory: No respiratory distress - Derm Derm: Normal color, Warm and dry, No rash - Extremities Extremities: No deformity, No edema - Neuro Neuro: Alert and oriented X 3, education administrator 2-12 intact, No motor deficit, No sensory deficit, Normal speech Eye Opening: Spontaneous Motor: Obeys Commands Verbal: Oriented GCS Score: 15 PD ED PE EXPANDED - Neuro Neuro: Alert and Oriented X 3, Normal motor, Normal Speech, CNII-XII intact, PERRL, Normal gait, Normal finger nose, Normal speech, Other. No: Confused, Lethargic, Weakness, Nystagmus - Psych Psych: Anxious, Pressured speech Results - Vitals Vitals: Vital Signs - 24 hr 10/03/23 10/03/23 11:00 13:08 Temperature 36.9 C Heart Rate 80 68 Respiratory 20 20 Rate Blood Pressure 163/73 H 109/66 O2 Saturation 98 98 Oxygen O2 Source Room air - Labs Labs: Laboratory Tests 10/03/23 10/03/23 11:29 11:29 WBC 5.5 RBC 4.41 L Hgb 12.7 L Hct 37.8 L MCV 85.7 MCH 28.8 MCHC 33.6 RDW 12.9 Plt Count 130 MPV 11.4 Neut # (Auto) 3.7 Lymph # (Auto) 1.3 L [place] # (Auto) 0.3 Eos # (Auto) 0.3 Baso # (Auto) 0.0 Absolute Nucleated RBC 0.00 Nucleated RBC % 0.0 Sodium 138 Potassium 4.1 Chloride 103 Carbon Dioxide 29 Anion Gap 6.0 BUN 15 Creatinine 0.7 Estimated GFR (MDRD) 120 Glucose 159 H Calcium 9.6 Magnesium 1.7 Total Bilirubin 0.7 AST 16 ALT 16 Alkaline Phosphatase 57 Total Protein 6.8 Albumin 4.4 Globulin 2.4 Albumin/Globulin Ratio 1.8 Lipase 14 - Rads (name of study) Head CT without Relevant Findings:: Final report received, EMP independent interpretation of test, Other (No acute intracranial abnormalities or findings) Head and neck CT angio with Relevant Findings:: Final report received, EMP independent interpretation of test, Other (No acute abnormalities of the head or neck arteries.) PD Medical Decision Making - ED course ED course: 47-year-old male concerns for possible TIA. NIH score 0. Head CT was complete and no intracranial abnormalities or find head neck CT angio with is also complete and there is no abnormalities visualized of the arteries. Patient's migraine was significantly improved as well as his neck pain with Toradol. No recent fevers or chills he also says that he is feeling better after receiving a liter of IV fluids. He was told to follow-up with his primary care provider as well as his pain doctor to let them know about today's ER visit. Unsure what caused the symptoms of the brief episode of left facial drooping patient says that he did not notice it on himself but that his colleague noticed it and that he was speaking a little more slow. The story is a little unclear but at this point in time I do not believe any further emergent workup is indicated at this time. Labs were also complete while he was here and no leukocytosis mild anemia hemoglobin 12.7 no electrolyte abnormalities that could be contributing to this. Patient also complains of hypersensitivity to the right upper portion of his f elham I informed him that this could be early signs of shingles outbreak but given that he has absolutely no skin changes in this area it is hard to say what is going on give it a couple days see if it goes away and he was taught signs and symptoms of shingles to watch out for and was informed to follow-up with PCP if needed all questions answered return precautions given patient is safe for discharge at this time. Departure - Departure Disposition: 01 Home, Self Care Clinical Impression: Migraine Instructions: ED Headache Tension, ED Insomnia Comments: Thank you for trusting us with your care it is difficult to say what caused the numbness to your face and what is causing the hypersensitivity to the right portion of your face. Your head CT as well as your CT angio head and neck has also been found to be within normal limits. There are multiple things that could have caused this including a TIA but given that you are already on aspirin and cholesterol medications I do believe that going home is safe at this point in time. Is very important that you find a way to prioritize sleep getting at least 6 to 8 hours a night is very important to prevent from the symptoms from recurring know that you are very busy but your symptoms will get worse if you do not find a way to prioritize sleeping. Please come back to the ER if you are starting develop any worsening hypersensitivity to your face, nausea vomiting, or any other worsening symptoms that could be concerning for possible stroke. Forms: PCP List Discharge Date/Time: 10/03/23 13:41
[2023-10-03 11:43] LABS: BASOPHILS % (AUTO) 0.4 %; EOSINOPHILS # (AUTO) 0.3 10^3/uL (0.0-0.7); EOSINOPHILS % (AUTO) 4.9 %; HCT - HEMATOCRIT 37.8 % (42.0-52.0); HGB - HEMOGLOBIN 12.7 g/dL (14.0-18.0); LYMPHOCYTES # (AUTO) 1.3 10^3/uL (1.5-3.5); LYMPHOCYTES % (AUTO) 22.6 %; MEAN CORPUSCULAR HEMOGLOBIN 28.8 pg (27.0-31.0); MEAN CORPUSCULAR HGB CONC 33.6 g/dL (32.0-36.0); MEAN CORPUSCULAR VOLUME 85.7 fL (80.0-94.0); MEAN PLATELET VOLUME 11.4 fL (7.4-11.4); MONOCYTES # (AUTO) 0.3 10^3/uL (0.0-1.0); MONOCYTES % (AUTO) 5.3 %; NEUTROPHILS # (AUTO) 3.7 10^3/uL (1.5-6.6); NEUTROPHILS % (AUTO) 66.6 %; PLT - PLATELET COUNT 130 10^3/uL (130-450); RED BLOOD COUNT 4.41 10^6/uL (4.70-6.10); RED CELL DISTRIBUTION WIDTH 12.9 % (12.0-15.0); WHITE BLOOD COUNT 5.5 x10^3/uL (4.8-10.8)
[2023-10-03] MEDS: SODIUM CHLORIDE 0.9% 1,000 ML IV ONE (11:52)
[2023-10-03] MEDS: KETOROLAC 30 MG/ML VIAL IVP STA (11:52)
[2023-10-03 12:03] LABS: ALBUMIN 4.4 g/dL (3.2-5.5); ALBUMIN/GLOBULIN RATIO 1.8 (1.0-2.2); BILIRUBIN,TOTAL 0.7 mg/dL (0.2-1.0); CALCIUM 9.6 mg/dL (8.5-10.3); CREATININE 0.7 mg/dL (0.6-1.3); MAGNESIUM 1.7 mg/dL (1.7-2.3); POTASSIUM 4.1 mmol/L (3.5-4.5); TOTAL PROTEIN 6.8 g/dL (6.4-8.9)
[2023-10-03] MEDS ORDERED: iohexoL-300 100 ML VIAL ONE (12:35)
--- NOTE | 2023-10-03 13:19 | CT Report ---
PROCEDURE: Head WO INDICATIONS: severe migraine with tranient left facial drooping TECHNIQUE: Noncontrast 4.5 mm thick angled axial sections acquired from the foramen magnum to the vertex. For r adiation dose reduction, the following was used: automated exposure control, adjustment of mA and/or kV according to patient size. COMPARISON: None. FINDINGS: Image quality: Excellent. CSF spaces: Basal cisterns are patent. No extra-axial fluid collections. Ventricles are normal in size and shape. Brain: No midline shift. No intracranial masses or hemorrhage. Baird-white matter interface is norm al. Skull and face: Calvarium and visualized facial bones are intact, without suspicious lesions. Sinuses: Visualized sinuses and mastoids are clear. IMPRESSION: No acute intracranial pathology. Reviewed by: Terrell Connor MD on 10/03/2023 1:18 PM PDT Approved by: Terrell Connor MD on 10/03/2023 1:18 PM PDT Station ID: [id number]
--- NOTE | 2023-10-03 13:23 | CT Report ---
PROCEDURE: Angio Head/Neck INDICATIONS: L. facial drooping TECHNIQUE: After the administration of intravenous contrast, 1 mm thick sections acquired from the aortic arch t hrough the [place] of [place]. 3-dimensional lojkmzs-rsygyefgv-qxnlqojzvy (MIP) and/or volume renderin g reformats were acquired of the central intracranial vasculature and neck separately. For radiation dose reduction, the following was used: automated exposure control, adjustment of mA and/or kV acco rding to patient size. CONTRAST: 80ml omni 300 COMPARISON: None. FINDINGS: Image quality: Diagnostic. HEAD CT: CSF Spaces: Basal cisterns are patent. No extra-axial fluid collections. Ventricles are normal in size and shape. Brain: No significant abnormality is seen for scanning technique. Skull and face: Calvarium and visualized facial bones appear intact, without suspicious lesions. Sinuses: Visualized sinuses and mastoids are clear. HEAD CT ANGIOGRAPHY: Anterior circulation: Intracranial internal carotid arteries are normal in size and flow. The flow within the paired anterior cerebral arteries is normal and symmetric. The flow within the middle cer ebral arteries is normal and symmetric. The anterior communicating artery is seen. No aneurysms are seen. Posterior circulation: Visualized portions of the vertebral arteries demonstrate normal caliber, and join to form a normal appearing basilar artery. Flow within the posterior cerebral arteries is norm al and symmetric. No aneurysms are seen. NECK CT ANGIOGRAPHY: Carotid system: The great vessels demonstrate a conventional anatomy as they arise from the aortic a rch. The origins of the common carotid arteries appear patent. The common carotid arteries demonstr ate normal caliber and courses. The bifurcation regions are both widely patent. The internal caroti d arteries demonstrate normal calibers and courses. Posterior circulation: The origins of the vertebral arteries both appear widely patent. The more nicholson perior extracranial portions of both vertebral arteries also demonstrate normal courses and calibers. They join to form a normal appearing basilar artery. Soft tissues: Visualized neck soft tissues demonstrate no suspicious abnormalities. Bones: No suspicious bony lesions. Visualized cervical spine appears normally aligned. IMPRESSION: No significant intracranial arterial abnormality is seen. No significant abnormality is seen within the arteries of the neck. The estimate of stenosis included in the report of the imaging study was calculated using the NASCET method Reviewed by: Terrell Connor MD on 10/03/2023 1:22 PM PDT Approved by: Terrell Connor MD on 10/03/2023 1:22 PM PDT Station ID: [id number]
[2023-10-03 13:32] VITALS: BP 109/66
[2023-10-03] MEDS: iohexoL-300 100 ML VIAL IVP ONE (16:23)
== END 2023-10-03 13:41 | disposition home or self-care (01) ==
LOC: ED 10:49
DX: G43.909 Migraine, unspecified, not intractable, without status migrainosus (principal); R20.0 Anesthesia of skin; R44.8 Other symptoms and signs involving general sensations and perceptions; F17.200 Nicotine dependence, unspecified, uncomplicated
CPT/HCPCS: 36415; 70450; 70496; 70498; 80053; 83690; 83735; 85025; 96374; 99284; Q9967